=== PATIENT | female | born 1995 | race Two or more races ===

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

== ENCOUNTER 2017-02-06 16:49 | Emergency (ER) | payer SELFPAY ==
[~2017-02-06] VITALS: Ht 160 cm; Wt 72.1 kg
[2017-02-06] MEDS ORDERED: IV NORMAL SALINE 1000ML BAG 1,000 ML IV ONE (18:15)
[2017-02-06 18:54] LABS: BASO % 1 % (0-3); EOS % 1 % (0-3); HEMATOCRIT 40.6 % (36.0-47.0); HEMOGLOBIN 13.4 g/dL (12.0-15.5); LYMPH # 2.5 x10^3/uL (1.0-4.8); LYMPH % 24 % (24-48); MEAN CORPUSCULAR HEMOGLOBIN 28 pg (25-35); MEAN CORPUSCULAR HGB CONC 33 g/dL (31-37); MEAN CORPUSCULAR VOLUME 84 fL (79-100); MONO % 5 % (0-9); NEUT % 70 % (31-73); PLATELET COUNT 308 x10^3/uL (140-400); WHITE BLOOD COUNT 10.6 x10^3/uL (4.0-11.0)
[2017-02-06 19:02] LABS: CREATININE 0.6 mg/dL (0.6-1.0); GFR 128.8; MAGNESIUM 1.9 mg/dL (1.8-2.4); POTASSIUM 3.6 mmol/L (3.5-5.1)
[2017-02-06 19:42] VITALS: BP 113/70
--- NOTE | 2017-02-06 19:42 | PHYS DOC ---
Past Medical History Past Medical History: No Pertinent History, Other Additional Past Medical Histor: preeclampsia Past Surgical History: Other Additional Past Surgical Histo: RIGHT HAND REPAIR Alcohol Use: None Drug Use: None Adult General Chief Complaint Chief Complaint: NEAR SYNCOPE HPI HPI Patient is a 21 year old female who presents with general weakness. Patient reports last night she had an episode of palpitations and felt weak. This resolved, however this afternoon it started again. After arrival to ED patient reports her symptoms have started getting better. She did go to the Emergency Department at last night for her symptoms, but says "they did nothing at all " and discharged her home with no diagnosis. No chest pain or SOB. She has not taken anything for symptoms. Review of Systems Review of Systems Constitutional: General weakness. Denies fever or chills Respiratory: Denies cough or shortness of breath Cardiovascular: Palpitations. Denies chest pain GI: Denies abdominal pain, nausea, vomiting, or diarrhea Musculoskeletal: Denies back pain or joint pain Neurologic: Denies headache, focal weakness or sensory changes Current Medications Current Medications Current Medications Medications (Trade) Dose Ordered Sig/Jah Start Time Stop Time Status Last Admin Dose Admin Sodium Chloride (Iv Sodium Chloride 0.9% 1000ml Bag) 1,000 ml @ 1,000 mls/hr 1X ONCE 02/06/17 18:15 02/06/17 19:14 DC 02/06/17 18:43 1,000 MLS/HR Allergies Allergies Allergies Coded Allergies Type Severity Reaction Last Updated Verified No Known Drug Allergies 12/31/13 No Physical Exam Physical Exam Constitutional: Well developed, well nourished, no acute distress, non-toxic appearance. [] HENT: Normocephalic, atraumatic, bilateral external ears normal, oropharynx moist, no oral exudates, nose normal. [] Eyes: PERRLA, EOMI, conjunctiva normal, no discharge. [] Neck: Normal range of motion, no tenderness, supple, no stridor. [] Cardiovascular:Heart rate regular rhythm, no murmur [] Lungs & Thorax: Bilateral breath sounds clear to auscultation [] Abdomen: Bowel sounds normal, soft, no tenderness, no masses, no pulsatile masses. [] Skin: Warm, dry, no erythema, no rash. [] Back: No tenderness, no CVA tenderness. [] Extremities: No tenderness, no cyanosis, no clubbing, ROM intact, no edema. [] Neurologic: Alert and oriented X 3, normal motor function, normal sensory function, no focal deficits noted. [] Psychologic: Affect normal, judgement normal, mood normal. [] Current Patient Data Vital Signs Vital Signs Date Time Temp Pulse Resp B/P Pulse Ox O2 Delivery O2 Flow Rate FiO2 02/06/17 19:42 78 113/70 99 Room Air 02/06/17 17:05 97.9 18 97.9 Lab Values Laboratory Tests Test 02/06/17 16:23 02/06/17 18:40 POC Urine HCG, Qualitative Hcg negative (Negative) White Blood Count 10.6x10^3/uL (4.0-11.0) Red Blood Count 4.80x10^6/uL (3.50-5.40) Hemoglobin 13.4g/dL (12.0-15.5) Hematocrit 40.6% (36.0-47.0) Mean Corpuscular Volume 84fL (79-100) Mean Corpuscular Hemoglobin 28pg (25-35) Mean Corpuscular Hemoglobin Concent 33g/dL (31-37) Red Cell Distribution Width 15.0% (11.5-14.5) H Platelet Count 308x10^3/uL (140-400) Neutrophils (%) (Auto) 70% (31-73) Lymphocytes (%) (Auto) 24% (24-48) Monocytes (%) (Auto) 5% (0-9) Eosinophils (%) (Auto) 1% (0-3) Basophils (%) (Auto) 1% (0-3) Neutrophils # (Auto) 7.4x10^3uL (1.8-7.7) Lymphocytes # (Auto) 2.5x10^3/uL (1.0-4.8) Monocytes # (Auto) 0.6x10^3/uL (0.0-1.1) Eosinophils # (Auto) 0.1x10^3/uL (0.0-0.7) Basophils # (Auto) 0.0x10^3/uL (0.0-0.2) Sodium Level 142mmol/L (136-145) Potassium Level 3.6mmol/L (3.5-5.1) Chloride Level 104mmol/L (98-107) Carbon Dioxide Level 30mmol/L (21-32) Anion Gap 8 (6-14) Blood Urea Nitrogen 10mg/dL (7-20) Creatinine 0.6mg/dL (0.6-1.0) Estimated GFR (Cockcroft-Gault) 128.8 Glucose Level 87mg/dL (70-99) Calcium Level 9.0mg/dL (8.5-10.1) Magnesium Level 1.9mg/dL (1.8-2.4) Thyroid Stimulating Hormone (TSH) 1.955uIU/mL (0.358-3.74) Laboratory Tests 02/06/17 18:40 Laboratory Tests 02/06/17 18:40 EKG EKG EKG (my read): sinus rhythm, rate 77, normal axis, intervals wnl, nonspecific ST changes (likely age-related) Radiology/Procedures Radiology/Procedures CXR (my read): No acute abnormality Course & Med Decision Making Course & Med Decision Making Pertinent Labs and Imaging studies reviewed. (See chart for details) Patient is 21 year old female who presents with general weakness, palpitations. Possibly due to anxiety. EKG, CXR, labs ordered to screen for other causes. IV fluid bolus given. EKG, CXR ok per my read. Labs unremarkable. Discussed results with patient, who is feeling better. Will discharge with instructions for follow up, return precautions. Dragon Disclaimer Dragon Disclaimer This electronic medical record was generated, in whole or in part, using a voice recognition dictation system. Departure Departure Impression: Primary Impression: Weakness generalized Additional Impression: Palpitations Disposition: 01 HOME, SELF-CARE Condition: IMPROVED Referrals: UNKNOWN PCP NAME (PCP) Patient Instructions: Anxiety and Panic Attacks, Palpitations Additional Instructions: Thank you for allowing us to provide care today in the Emergency Department. Keep your follow up appointment with your primary care doctor. Return promptly to the Emergency Department if you develop any new or concerning symptoms. Problem Qualifiers MARIO VARGAS MD Feb 06, 2017 19:42
--- NOTE | 2017-02-07 06:09 | EKG ---
[facility] [address] [place] [address] Test Date: 2017-02-06 Test Time: 17:21:04 Pat Name: MIKI GARLAND Department: Room: Gender: F Rd Project Manager: : 1995 Requested By: MARIO VARGAS Order Number: [id number] Reading MD: Viv Burton Measurements Intervals [place] Rate: 77 P: 62 KS: 120 QRS: 90 QRSD: 88 T: 28 QT: 374 QTc: 425 Interpretive Statements SINUS RHYTHM NORMAL EKG Electronically Signed On 02-08-2017 17:23:32 CDT by Viv Burotn
--- NOTE | 2017-02-07 08:49 | RAD ---
PA and lateral chest radiographs 02/06/2017. Clinical History: Palpitations for one day with dizziness. PA and lateral digital radiographs of the chest were obtained. No previous studies are available for comparison. The cardiac and mediastinal silhouettes are within normal limits in size and configuration. No pulmonary infiltrate is seen. No pleural effusion or pneumothorax is noted. The osseous structures are grossly intact. Impression: No radiographic evidence of active cardiopulmonary disease.
== END 2017-02-06 19:55 | disposition home or self-care (01) ==
LOC: ER 16:49
DX: R53.1 Weakness (principal); R00.2 Palpitations
CPT/HCPCS: 36415; 71020; 80048; 81025; 83735; 84443; 85027; 93005; 96360; 99285; J7030

== ENCOUNTER 2017-03-13 14:51 | Emergency (ER) | payer SELFPAY ==
[~2017-03-13] VITALS: Ht 160 cm; Wt 72.1 kg
[2017-03-13 15:28] LABS: BILIRUBIN,URINE NEGATIVE (NEG); GLUCOSE,URINE NEGATIVE (NEG); NITRITE,URINE NEGATIVE (NEG); PH,URINE 7.5; PROTEIN,URINE NEGATIVE (NEG-TRACE); UROBILINOGEN,URINE 0.2 mg/dL (0.2 mg/dL)
[2017-03-13 15:34] LABS: BACTERIA,URINE 0 /HPF (0-FEW); RBC,URINE 0 /HPF (0-2); SQUAMOUS EPITHELIAL CELL,UR FEW /LPF; WBC,URINE OCC /HPF (0-4)
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
[2017-03-13 16:19] LABS: BASO # 0.1 x10^3/uL (0.0-0.2); BASO % 1 % (0-3); EOS % 1 % (0-3); HEMATOCRIT 37.2 % (36.0-47.0); HEMOGLOBIN 12.1 g/dL (12.0-15.5); LYMPH # 2.9 x10^3/uL (1.0-4.8); LYMPH % 29 % (24-48); MEAN CORPUSCULAR HEMOGLOBIN 27 pg (25-35); MEAN CORPUSCULAR HGB CONC 33 g/dL (31-37); MEAN CORPUSCULAR VOLUME 84 fL (79-100); MONO % 4 % (0-9); NEUT % 65 % (31-73); PLATELET COUNT 271 x10^3/uL (140-400); RED BLOOD COUNT 4.45 x10^6/uL (3.50-5.40); RED CELL DISTRIBUTION WIDTH 14.9 % (11.5-14.5); WHITE BLOOD COUNT 10.2 x10^3/uL (4.0-11.0)
--- NOTE | 2017-03-13 16:33 | RAD ---
Chest, 2 views, 03/13/2017: History: Dizziness Comparison is made to a study from 02/06/2017. The heart size and pulmonary vascularity are normal. No pulmonary infiltrates are seen. There is no evidence of pleural fluid. IMPRESSION: No acute cardiopulmonary abnormality is detected.
[2017-03-13 16:36] LABS: CALCIUM 8.8 mg/dL (8.5-10.1); CREATININE 0.7 mg/dL (0.6-1.0); GFR 107.8; POTASSIUM 3.6 mmol/L (3.5-5.1)
--- NOTE | 2017-03-13 16:39 | EKG ---
[facility] [address] [place] [address] Test Date: 2017-03-13 Test Time: 16:05:51 Pat Name: MIKI GARLAND Department: Room: Gender: F Endocrinology Nurse: : 1995 Requested By: WENDY LINCOLN Order Number: [id number] Reading MD: Viv Burton Measurements Intervals [place] Rate: 65 P: 56 KS: 114 QRS: 93 QRSD: 86 T: 38 QT: 400 QTc: 417 Interpretive Statements SINUS RHYTHM RIGHTWARD AXIS OTHERWISE NORMAL ECG RI6.01 Unconfirmed report Compared to ECG 02/06/2017 17:21:04 Right-axis deviation now present Electronically Signed On 03-15-2017 15:38:44 CDT by Viv Burton
[2017-03-13 17:23] LABS: BARBITURATES NEG (NEG); BENZODIAZEPINES NEG (NEG); CANNABINOIDS NEG (NEG); COCAINE NEG (NEG); METHADONE NEG (NEG); OPIATES NEG (NEG); PHENCYCLIDINE NEG (NEG)
[2017-03-13 18:01] VITALS: BP 110/65
== END 2017-03-13 18:01 | disposition home or self-care (01) ==
LOC: ER 14:51
DX: T43.225A Adverse effect of selective serotonin reuptake inhibitors, initial encounter (principal); R07.89 Other chest pain; Y92.89 Other specified places as the place of occurrence of the external cause
CPT/HCPCS: 36415; 71020; 80048; 80305; 81001; 81025; 84484; 84703; 85027; 93005; G0481; 99285-25

== ENCOUNTER 2017-04-13 18:53 | Emergency (ER) | payer SELFPAY ==
[~2017-04-13] VITALS: Ht 160 cm; Wt 72.6 kg
[2017-04-13 19:19] LABS: BILIRUBIN,URINE NEGATIVE (NEG); GLUCOSE,URINE NEGATIVE (NEG); NITRITE,URINE NEGATIVE (NEG); PROTEIN,URINE NEGATIVE (NEG-TRACE); UROBILINOGEN,URINE 0.2 mg/dL (0.2 mg/dL)
[2017-04-13 19:28] LABS: BACTERIA,URINE FEW /HPF (0-FEW); RBC,URINE TNTC /HPF (0-2); SQUAMOUS EPITHELIAL CELL,UR OCC /LPF; WBC,URINE OCC /HPF (0-4)
--- NOTE | 2017-04-13 19:35 | PHYS DOC ---
Past Medical History Past Medical History: Anxiety, Depression, Other Additional Past Medical Histor: preeclampsia Past Surgical History: Other Additional Past Surgical Histo: RIGHT HAND REPAIR Alcohol Use: Occasionally Drug Use: None Adult General Chief Complaint Chief Complaint: VAGINAL BLEEDING HPI HPI Patient is a 21 year old female presents emergency department stating that her last normal menstrual. Was on 02/20/17. Patient states that she started spotting yesterday. She states that she had 2 tests that were +1 at home and wanted a clinic. Patient states that she is a 4 para 2 medical AB 2. Patient states that she started spotting last night today she started developing suprapubic abdominal pain and discomfort with back pain. She states that she has gone through 4 pads since this morning. She states that they have not been saturated. Patient denies any nausea vomiting fever or chills. She denies concerns for STDs at this time. She states she has sexually active with one partner her . Review of Systems Review of Systems Constitutional: Denies fever or chills [] Eyes: Denies change in visual acuity, redness, or eye pain [] HENT: Denies nasal congestion or sore throat [] Respiratory: Denies cough or shortness of breath [] Cardiovascular: No additional information not addressed in HPI [] GI: Suprapubic abdominal pain, denies nausea, vomiting, bloody stools or diarrhea [] : Denies dysuria or hematuria [] Musculoskeletal: Denies back pain or joint pain [] Integument: Denies rash or skin lesions [] Neurologic: Denies headache, focal weakness or sensory changes [] Endocrine: Denies polyuria or polydipsia [] Allergies Allergies Allergies Coded Allergies Type Severity Reaction Last Updated Verified No Known Drug Allergies 12/31/13 No Physical Exam Physical Exam Constitutional: Well developed, well nourished, no acute distress, non-toxic appearance. [] HENT: Normocephalic, atraumatic, bilateral external ears normal, oropharynx moist, no oral exudates, nose normal. [] Eyes: PERRLA, EOMI, conjunctiva normal, no discharge. [] Neck: Normal range of motion, no tenderness, supple, no stridor. [] Cardiovascular:Heart rate regular rhythm, no murmur [] Lungs & Thorax: Bilateral breath sounds clear to auscultation [] Abdomen: Bowel sounds hypoactive, soft, no tenderness, no masses, no pulsatile masses. [] Skin: Warm, dry, no erythema, no rash. [] Back: No tenderness Extremities: No tenderness, no cyanosis, no clubbing, ROM intact, no edema. [] Neurologic: Alert and oriented X 3, normal motor function, normal sensory function, no focal deficits noted. [] Psychologic: Affect normal, judgement normal, mood normal. [] Current Patient Data Vital Signs Vital Signs Date Time Temp Pulse Resp B/P (MAP) Pulse Ox O2 Delivery O2 Flow Rate FiO2 04/13/17 19:05 98.6 59 16 114/56 (75) 97 Room Air 98.6 Lab Values Laboratory Tests Test 04/13/17 18:18 04/13/17 19:10 04/13/17 19:20 POC Urine HCG, Qualitative Hcg negative (Negative) Urine Color Yellow Urine Clarity Cloudy Urine pH 7.0 Urine Specific [place] 1.015 Urine Protein Negative mg/dL (NEG-TRACE) Urine Glucose (UA) Negative mg/dL (NEG) Urine Ketones (Stick) Negative mg/dL (NEG) Urine Blood Large (NEG) Urine Nitrite Negative (NEG) Urine Bilirubin Negative (NEG) Urine Urobilinogen Dipstick 0.2 mg/dL (0.2 mg/dL) Urine Leukocyte Esterase Trace (NEG) Urine RBC Tntc /HPF (0-2) Urine WBC Occ /HPF (0-4) Urine Squamous Epithelial Cells Occ /LPF Urine Bacteria Few /HPF (0-FEW) Urine Mucus Slight /LPF Maternal Serum HCG Beta Subunit 2 mIU/mL (0-5) EKG EKG [] Radiology/Procedures Radiology/Procedures [] Course & Med Decision Making Course & Med Decision Making Pertinent Labs and Imaging studies reviewed. (See chart for details) Patient's test was negative here in the emergency department. Her Quant was 2. Patient with suprapubic abdominal pain and discomfort with cramping and lower back pain. Patient's urinalysis was positive for urinary tract infection. Patient will be provided with Macrobid one tablet twice day for the next 7 days recommended plenty of fluids such as water and cranberry juice. Recommended avoiding coverages cocktail, carbonate beverages, citrus fruits and alcohol as these are considered irritants to the bladder. Patient was also encouraged to follow-up with [employer]TE[employer]CE MECH[employer]IC in regards to irregular menstrual cycles. Patient agrees with discharge instructions, treatment regimens and follow-up recommendations. Signs and symptoms to return back to emergency department has been provided. [] Shelby Disclaimer Dragon Disclaimer This electronic medical record was generated, in whole or in part, using a voice recognition dictation system. Departure Departure Impression: Primary Impression: UTI (lower urinary tract infection) Additional Impression: Abnormal vaginal bleeding Disposition: HOME, SELF-CARE Condition: STABLE Referrals: LUCAS GONZALEZ (PCP) Patient Instructions: Urinary Tract Infection, [id number], Uterine Bleeding, Dysfunctional, [id number] Additional Instructions: Your urine test was positive for urinary tract infection. Your urine test was negative for . Her quantitative hCG was 2. Drink plenty of fluids such as water and cranberry juice. Avoid cranberry juice cocktail, carbonated beverages, caffeine, alcohol, citrus fruits as these are considered irritants to the bladder. Medication as prescribed. Tylenol or ibuprofen for pain and discomfort. Follow-up with her [employer] MA[employer]TE[employer]CE MECH[employer]IC in regards to dysfunctional bleeding. Return back to emergency department sign symptoms become worse. Scripts Nitrofurantoin Monohyd/M-Cryst (MACROBID 100 MG CAPSULE) 100 Mg Capsule 1 CAP PO BID, #14 CAP Prov: AILYN VÁSQUEZ APRN 04/13/17 Problem Qualifiers AILYN VÁSQUEZ APRN Apr 13, 2017 19:35
[2017-04-13] MEDS ORDERED: NITR100C62 PO (20:14)
[2017-04-13] MEDS ORDERED: IBUPROFEN 800 MG TABLET. PO ONE (20:15)
[2017-04-13 20:34] VITALS: BP 109/67
== END 2017-04-13 20:58 | disposition home or self-care (01) ==
LOC: ER 18:57
DX: N93.9 Abnormal uterine and vaginal bleeding, unspecified (principal); N39.0 Urinary tract infection, site not specified
CPT/HCPCS: 36415; 81001; 81025; 84702; 87086; 99284

== ENCOUNTER 2018-03-13 23:29 | Observation (INO) | payer SELFPAY ==
[2018-03-13] MEDS ORDERED: IV RINGERS,LACTATED 1000ML 1,000 ML IV (23:30)
[2018-03-14 01:12] LABS: BACTERIA,URINE MODERATE /HPF (0-FEW); BILIRUBIN,URINE NEGATIVE (NEG); CLARITY,URINE CLEAR; COLOR,URINE YELLOW; GLUCOSE,URINE NEGATIVE (NEG); NITRITE,URINE NEGATIVE (NEG); PROTEIN,URINE NEGATIVE (NEG-TRACE); RBC,URINE OCC /HPF (0-2); SQUAMOUS EPITHELIAL CELL,UR MANY /LPF; UROBILINOGEN,URINE 0.2 mg/dL (0.2 mg/dL)
[2018-03-14 01:16] LABS: BARBITURATES NEG (NEG); BENZODIAZEPINES NEG (NEG); CANNABINOIDS NEG (NEG); COCAINE NEG (NEG); METHADONE NEG (NEG); OPIATES NEG (NEG); PHENCYCLIDINE NEG (NEG)
[2018-03-14 01:17] LABS: AMPHETAMINE/METHAMPHETAMINE NEG (NEG); ETHANOL, URINE NEG (NEG)
[2018-03-14] MEDS: hydrOXYzine PAMOATE 25 MG CAPSULE PO (01:27)
== END 2018-03-14 01:34 | disposition home or self-care (01) ==
LOC: 3 SO LND 23:29
DX: O26.892 Other specified pregnancy related conditions, second trimester (principal); R10.9 Unspecified abdominal pain; Z3A.21 21 weeks gestation of pregnancy
CPT/HCPCS: 80307; 81001; 87086; G0378; G0379; Q0177

== ENCOUNTER 2018-05-03 01:53 | Observation (INO) | payer SELFPAY ==
[2018-05-03] MEDS ORDERED: IV RINGERS,LACTATED 1000ML 1,000 ML IV (02:00)
[2018-05-03 02:17] LABS: BILIRUBIN,URINE NEGATIVE (NEG); CLARITY,URINE CLEAR; GLUCOSE,URINE NEGATIVE (NEG); NITRITE,URINE NEGATIVE (NEG); PH,URINE 6.5; PROTEIN,URINE NEGATIVE (NEG-TRACE); UROBILINOGEN,URINE 0.2 mg/dL (0.2 mg/dL)
[2018-05-03 02:24] LABS: BARBITURATES NEG (NEG); BENZODIAZEPINES NEG (NEG); CANNABINOIDS NEG (NEG); COCAINE NEG (NEG); METHADONE NEG (NEG); OPIATES NEG (NEG); PHENCYCLIDINE NEG (NEG)
[2018-05-03 02:27] LABS: AMPHETAMINE/METHAMPHETAMINE NEG (NEG); ETHANOL, URINE NEG (NEG)
[2018-05-03 02:30] LABS: COLOR,URINE YELLOW
[2018-05-03 02:31] LABS: BACTERIA,URINE MODERATE /HPF (0-FEW); RBC,URINE OCC /HPF (0-2); SQUAMOUS EPITHELIAL CELL,UR MOD /LPF
[2018-05-03] MEDS: ACETAMINOPHEN 500 MG TABLET PO (03:22)
== END 2018-05-03 05:44 | disposition home or self-care (01) ==
LOC: 3 SO LND 01:53
DX: O99.89 Other specified diseases and conditions complicating pregnancy, childbirth and the puerperium (principal); O26.893 Other specified pregnancy related conditions, third trimester; M54.9 Dorsalgia, unspecified; R10.2 Pelvic and perineal pain; R10.9 Unspecified abdominal pain; Z3A.28 28 weeks gestation of pregnancy
CPT/HCPCS: 80307; 81001; 87086; G0378; G0379

== ENCOUNTER 2018-05-14 19:57 | Observation (INO) | payer SELFPAY ==
[2018-05-14] MEDS ORDERED: IV RINGERS,LACTATED 1000ML 1,000 ML IV (20:00)
== END 2018-05-14 21:20 | disposition home or self-care (01) ==
LOC: 3 SO LND 19:57
DX: O26.893 Other specified pregnancy related conditions, third trimester (principal); R42 Dizziness and giddiness; R51 Headache; Z3A.30 30 weeks gestation of pregnancy
CPT/HCPCS: G0378; G0379

== ENCOUNTER 2018-06-11 21:45 | Observation (INO) | payer SELFPAY ==
[2018-01-31 14:11] VITALS: BP 93/57
[~2018-06-11 21:45] MED LIST changes: +NITR100C62 PO
[2018-06-11] MEDS ORDERED: ACETAMINOPHEN 325 MG TABLET. PO PRN (22:00)
[2018-06-11 22:18] LABS: BILIRUBIN,URINE NEGATIVE (NEG); CLARITY,URINE CLEAR; COLOR,URINE YELLOW; NITRITE,URINE NEGATIVE (NEG); PH,URINE 6.5; PROTEIN,URINE NEGATIVE (NEG-TRACE); UROBILINOGEN,URINE 0.2 mg/dL (0.2 mg/dL)
[2018-06-11 22:26] LABS: AMPHETAMINE/METHAMPHETAMINE NEG (NEG); BACTERIA,URINE MANY /HPF (0-FEW); BARBITURATES NEG (NEG); BENZODIAZEPINES NEG (NEG); CANNABINOIDS NEG (NEG); COCAINE NEG (NEG); METHADONE NEG (NEG); OPIATES NEG (NEG); PHENCYCLIDINE NEG (NEG); RBC,URINE 0 /HPF (0-2); SQUAMOUS EPITHELIAL CELL,UR MANY /LPF
== END 2018-06-11 23:00 | disposition home or self-care (01) ==
LOC: 3 SO LND 21:45
PROVIDERS: ADMIT Obstetrics & Gynecology; ATTEND Obstetrics & Gynecology
DX: O26.893 Other specified pregnancy related conditions, third trimester (principal); R10.30 Lower abdominal pain, unspecified; Z3A.34 34 weeks gestation of pregnancy; Z79.899 Other long term (current) drug therapy
CPT/HCPCS: 80307; 81001; 87086; G0378; G0379; G0479

== ENCOUNTER 2018-06-15 11:02 | Observation (INO) | payer SELFPAY ==
[2018-01-31 14:11] VITALS: BP 93/57
[2018-06-15] MEDS ORDERED: IV RINGERS,LACTATED 1000ML 1,000 ML IV SCH (11:40)
[2018-06-15 12:02] LABS: BILIRUBIN,URINE NEGATIVE (NEG); CLARITY,URINE CLEAR; COLOR,URINE YELLOW; NITRITE,URINE NEGATIVE (NEG); PH,URINE 7.5; PROTEIN,URINE NEGATIVE (NEG-TRACE)
[2018-06-15 12:04] LABS: AMNIO PT NEGATIVE
[2018-06-15 12:21] LABS: RBC,URINE RARE /HPF (0-2)
[2018-06-15 12:22] LABS: BACTERIA,URINE MANY /HPF (0-FEW); SQUAMOUS EPITHELIAL CELL,UR MANY /LPF
== END 2018-06-15 13:03 | disposition home or self-care (01) ==
LOC: 3 SO LND 11:02
PROVIDERS: ADMIT Obstetrics & Gynecology; ATTEND Obstetrics & Gynecology
DX: O42.913 Preterm premature rupture of membranes, unspecified as to length of time between rupture and onset of labor, third trimester (principal); O26.893 Other specified pregnancy related conditions, third trimester; R10.2 Pelvic and perineal pain; Z3A.34 34 weeks gestation of pregnancy
CPT/HCPCS: 36415; 81001; 84112; 87086; G0378; G0379

== ENCOUNTER 2018-11-12 20:38 | Emergency (ER) | payer SELFPAY ==
[~2018-11-12] VITALS: Ht 160 cm; Wt 77.1 kg
[~2018-11-12 20:38] MED LIST changes: +HYDR-3164 PO; +NAPR-514 PO
--- NOTE | 2018-11-12 21:04 | PHYS DOC ---
Past Medical History Past Medical History: Anxiety, Depression, Other Additional Past Medical Histor: preeclampsia Past Surgical History: Other Additional Past Surgical Histo: RIGHT HAND REPAIR Additional Information: nonsmoker Alcohol Use: Occasionally Drug Use: None Adult General Chief Complaint Chief Complaint: DIZZY/LIGHT HEADED HPI HPI Patient is a 23 YO F that is presenting with dizziness and vomiting that began Thursday after she saw her PCP for symptoms of BV. She was prescribed Flagyl and she states that her symptoms began after she started taking the antibiotic. She reports a couple episodes of emesis in the last couple days with streaks of blood in the last episode. She denies drinking any alcohol while taking the antibiotic. She reports that she has had a headache that began today that is also bothering her. She reports episodes of heart palpitations but denies LOC or falling with the dizziness. She denies trauma. Denies . Review of Systems Review of Systems Constitutional: Denies fever or chills [] Eyes: Denies change in visual acuity, redness, or eye pain [] HENT: Denies nasal congestion or sore throat [] Respiratory: Denies cough or shortness of breath [] Cardiovascular: Denies chest pain, reports palpitations [] GI: Denies abdominal pain, or diarrhea, reports nausea and vomiting [] : Denies dysuria or hematuria [] Integument: Denies rash or skin lesions [] Neurologic: Reports headache, denies focal weakness or sensory changes [] Complete systems were reviewed and found to be within normal limits, except as documented in this note. Current Medications Current Medications Current Medications Medications (Trade) Dose Ordered Sig/Jah Start Time Stop Time Status Last Admin Dose Admin Dexamethasone Sodium Phosphate (Decadron) 10 mg 1X ONCE 11/12/18 21:45 11/12/18 21:47 DC 11/12/18 21:56 10 MG Ketorolac Tromethamine (Toradol 15mg Vial) 15 mg 1X ONCE 11/12/18 21:45 11/12/18 21:47 DC 11/12/18 21:55 15 MG Ondansetron HCl (Zofran) 4 mg 1X ONCE 11/12/18 22:00 11/12/18 22:02 DC 11/12/18 22:02 4 MG Sodium Chloride 1,000 ml @ 1,000 mls/hr 1X ONCE 11/12/18 21:15 11/12/18 22:14 11/12/18 21:21 1,000 MLS/HR Allergies Allergies Allergies Coded Allergies Type Severity Reaction Last Updated Verified No Known Drug Allergies 12/31/13 No Physical Exam Physical Exam Constitutional: Well developed, well nourished, no acute distress, non-toxic appearance. [] HENT: Normocephalic, atraumatic, nose normal, mild sinus tenderness. [] Eyes: EOMI, conjunctiva normal, no discharge. [] Neck: Normal range of motion, no tenderness, no meningeal signs [] Cardiovascular: Heart rate regular rhythm, no murmur [] Lungs & Thorax: Bilateral breath sounds clear to auscultation [] Abdomen: Soft, no tenderness. [] Skin: Warm, dry, no erythema, no rash. [] Extremities: No tenderness, no edema. [] Neurologic: Alert and oriented X 3, no focal deficits noted. [] Psychologic: Affect normal, judgement normal, mood normal. [] Current Patient Data Vital Signs Vital Signs Date Time Temp Pulse Resp B/P (MAP) Pulse Ox O2 Delivery O2 Flow Rate FiO2 11/12/18 20:53 98.1 87 18 127/73 (91) 99 Room Air 98.1 Lab Values Laboratory Tests Test 11/12/18 20:45 11/12/18 21:00 Urine Collection Type Unknown Urine Color Dominga Urine Clarity Clear Urine pH 6.5 Urine Specific [place] 1.025 Urine Protein 30 mg/dL (NEG-TRACE) Urine Glucose (UA) Negative mg/dL (NEG) Urine Ketones (Stick) Negative mg/dL (NEG) Urine Blood Negative (NEG) Urine Nitrite Negative (NEG) Urine Bilirubin Negative (NEG) Urine Urobilinogen Dipstick 0.2 mg/dL (0.2 mg/dL) Urine Leukocyte Esterase Small (NEG) Urine RBC 0 /HPF (0-2) Urine WBC 1-4 /HPF (0-4) Urine Squamous Epithelial Cells Mod /LPF Urine Bacteria Moderate /HPF (0-FEW) Urine Mucus Marked /LPF Urine Test Negative (NEG) White Blood Count 10.7 x10^3/uL (4.0-11.0) Red Blood Count 4.66 x10^6/uL (3.50-5.40) Hemoglobin 13.5 g/dL (12.0-15.5) Hematocrit 40.8 % (36.0-47.0) Mean Corpuscular Volume 88 fL (79-100) Mean Corpuscular Hemoglobin 29 pg (25-35) Mean Corpuscular Hemoglobin Concent 33 g/dL (31-37) Red Cell Distribution Width 15.1 % (11.5-14.5) H Platelet Count 313 x10^3/uL (140-400) Neutrophils (%) (Auto) 80 % (31-73) H Lymphocytes (%) (Auto) 16 % (24-48) L Monocytes (%) (Auto) 4 % (0-9) Eosinophils (%) (Auto) 0 % (0-3) Basophils (%) (Auto) 1 % (0-3) Neutrophils # (Auto) 8.5 x10^3uL (1.8-7.7) H Lymphocytes # (Auto) 1.7 x10^3/uL (1.0-4.8) Monocytes # (Auto) 0.4 x10^3/uL (0.0-1.1) Eosinophils # (Auto) 0.0 x10^3/uL (0.0-0.7) Basophils # (Auto) 0.1 x10^3/uL (0.0-0.2) Sodium Level 141 mmol/L (136-145) Potassium Level 3.5 mmol/L (3.5-5.1) Chloride Level 103 mmol/L (98-107) Carbon Dioxide Level 27 mmol/L (21-32) Anion Gap 11 (6-14) Blood Urea Nitrogen 12 mg/dL (7-20) Creatinine 0.6 mg/dL (0.6-1.0) Estimated GFR (Cockcroft-Gault) 126.2 BUN/Creatinine Ratio 20 (6-20) Glucose Level 121 mg/dL (70-99) H Calcium Level 9.5 mg/dL (8.5-10.1) Magnesium Level 1.7 mg/dL (1.8-2.4) L Total Bilirubin 0.4 mg/dL (0.2-1.0) Aspartate Amino Transferase (AST) 22 U/L (15-37) Alanine Aminotransferase (ALT) 29 U/L (14-59) Alkaline Phosphatase 112 U/L (46-116) Creatine Kinase 51 U/L (26-192) Creatine Kinase MB (Mass) < 0.5 ng/mL (0.0-3.6) Creatine Kinase MB Relative Index % (0-4) Troponin I Quantitative < 0.017 ng/mL (0.000-0.055) Total Protein 8.4 g/dL (6.4-8.2) H Albumin 3.9 g/dL (3.4-5.0) Albumin/Globulin Ratio 0.9 (1.0-1.7) L Ethyl Alcohol Level < 10 mg/dL (0-10) Laboratory Tests 11/12/18 21:00 Laboratory Tests 11/12/18 21:00 EKG EKG @2117 NSR at 74 BPM, no ST elevation Radiology/Procedures Radiology/Procedures [] Course & Med Decision Making Course & Med Decision Making Pertinent Labs reviewed. (See chart for details) Patient is a 23 YO F that is presenting with a three day history of nausea and dizziness that began when she started taking her Flagyl prescribed by her PCP for symptoms of BV. She denies drinking alcohol while taking the antibiotics and reports episodes of heart racing during the last couple days. She is PERC negative. Labs were obtained and posted to chart. EKG was NSR, no ST elevation. Orthostatics negative. One liter NS bolus given. Headache pain addressed. Patient did have episode of nausea and vomiting in department. Nausea addressed. Patient stable for discharge with outpatient follow-up with PCP. Discussed findings and plan with patient and family, who acknowledge understanding and agreement. Dragon Disclaimer Dragon Disclaimer This electronic medical record was generated, in whole or in part, using a voice recognition dictation system. Departure Departure Impression: Primary Impression: Dizziness Additional Impressions: Headache Palpitations Nausea & vomiting Disposition: 01 HOME, SELF-CARE Condition: STABLE Referrals: NO PCP (PCP) Patient Instructions: Dizziness, Anhk-jo-Voyk, General Headache Without Cause, Qtsu-[id number], Nausea and Vomiting, Veok-ad-Wuaa, Palpitations, Ctyr-uq-Vnai Scripts Ondansetron (ONDANSETRON ODT) 4 Mg Tab.rapdis 1 TAB PO PRN Q6-8HRS PRN for NAUSEA, #16 TAB Prov: JOSH GARCIA DO 11/12/18 Butalb/Acetaminophen/Caffeine (AUHIPG-GVVUEFTM-GMXM 50-325-40) 1 Each Tablet 1 EACH PO Q6HRS PRN for HEADACHE, #14 TAB Prov: JOSH GARCIA DO 11/12/18 Problem Qualifiers Additional Impressions: Headache Headache type: unspecified Headache chronicity pattern: acute headache Intractability: not intractable Qualified Codes: R51 - Headache Nausea & vomiting Vomiting type: unspecified Vomiting Intractability: non-intractable Qualified Codes: R11.2 - Nausea with vomiting, unspecified JOSH GARCIA DO Nov 12, 2018 21:04
[2018-11-12] MEDS ORDERED: IV NORMAL SALINE 1000ML BAG 1,000 ML IV ONE (21:15)
[2018-11-12 21:18] LABS: BASO # 0.1 x10^3/uL (0.0-0.2); BASO % 1 % (0-3); EOS % 0 % (0-3); HEMATOCRIT 40.8 % (36.0-47.0); HEMOGLOBIN 13.5 g/dL (12.0-15.5); LYMPH # 1.7 x10^3/uL (1.0-4.8); LYMPH % 16 % (24-48); MEAN CORPUSCULAR HEMOGLOBIN 29 pg (25-35); MEAN CORPUSCULAR HGB CONC 33 g/dL (31-37); MEAN CORPUSCULAR VOLUME 88 fL (79-100); MONO # 0.4 x10^3/uL (0.0-1.1); MONO % 4 % (0-9); NEUT # 8.5 x10^3uL (1.8-7.7); NEUT % 80 % (31-73); PLATELET COUNT 313 x10^3/uL (140-400); RED BLOOD COUNT 4.66 x10^6/uL (3.50-5.40); RED CELL DISTRIBUTION WIDTH 15.1 % (11.5-14.5); WHITE BLOOD COUNT 10.7 x10^3/uL (4.0-11.0)
[2018-11-12 21:19] LABS: BILIRUBIN,URINE NEGATIVE (NEG); CLARITY,URINE CLEAR; COLOR,URINE AMBER; NITRITE,URINE NEGATIVE (NEG); PH,URINE 6.5; PROTEIN,URINE 30 mg/dL (NEG-TRACE); UROBILINOGEN,URINE 0.2 mg/dL (0.2 mg/dL)
[2018-11-12 21:25] LABS: CALCIUM 9.5 mg/dL (8.5-10.1); CREATININE 0.6 mg/dL (0.6-1.0); GFR 126.2; POTASSIUM 3.5 mmol/L (3.5-5.1)
[2018-11-12 21:26] LABS: BACTERIA,URINE MODERATE /HPF (0-FEW); RBC,URINE 0 /HPF (0-2); SQUAMOUS EPITHELIAL CELL,UR MOD /LPF
[2018-11-12 21:29] LABS: U PREG PATIENT NEGATIVE (NEG)
[2018-11-12 21:30] LABS: ALBUMIN 3.9 g/dL (3.4-5.0); ALBUMIN/GLOBULIN RATIO 0.9 (1.0-1.7); MAGNESIUM 1.7 mg/dL (1.8-2.4); TOTAL BILIRUBIN 0.4 mg/dL (0.2-1.0); TOTAL PROTEIN 8.4 g/dL (6.4-8.2)
[2018-11-12 21:39] LABS: CREATINE KINASE 51 U/L (26-192)
[2018-11-12] MEDS ORDERED: KETOROLAC 15 MG/ML VIAL. IV ONE (21:45)
[2018-11-12] MEDS ORDERED: DEXAMETHASONE SOD PHOS 20 MG/5 ML VIAL. IV ONE (21:45)
[2018-11-12 21:47] VITALS: BP 109/65
[2018-11-12] MEDS ORDERED: BUTA1TAB23 PO (21:50)
[2018-11-12] MEDS ORDERED: ONDANSETRON PF 4 MG/2 ML VIAL. IV ONE (22:00)
[2018-11-12] MEDS ORDERED: ONDA4TAB12 PO (22:03)
--- NOTE | 2018-11-14 10:30 | EKG ---
[facility] [address] [place] [address] Test Date: 2018-11-12 Test Time: 21:11:01 Pat Name: MIKI GONZALEZ Department: Room: Gender: F Completion Engineer: : 1995 Requested By: JOSH GARCIA Order Number: [id number] Reading MD: Measurements Intervals Cameron Rate: 74 P: 43 ID: [id number] QRS: 74 QRSD: 92 T: 34 QT: 386 QTc: 429 Interpretive Statements SINUS RHYTHM NORMAL ECG RI6.01 No previous ECG available for comparison
== END 2018-11-12 22:25 | disposition home or self-care (01) ==
LOC: ER 20:38
DX: R42 Dizziness and giddiness (principal); R11.2 Nausea with vomiting, unspecified; R00.2 Palpitations; R51 Headache; F41.9 Anxiety disorder, unspecified; F32.9 Major depressive disorder, single episode, unspecified
CPT/HCPCS: 36415; 80053; 81001; 81025; 82553; 83735; 84484; 85025; 87086; 93005; 96361; 96374; 96375; 99284; G0480; J1100; J1885; J2405; J7030

== ENCOUNTER 2019-05-03 13:51 | Emergency (ER) | payer SELFPAY ==
[~2019-05-03] VITALS: Ht 157.5 cm; Wt 77.1 kg
[~2019-05-03 13:51] MED LIST changes: +BUTA1TAB23 PO; +ONDA4TAB12 PO
[2019-05-03 14:13] VITALS: BP 116/66
--- NOTE | 2019-05-03 14:49 | RAD ---
Indication: Right thumb crush injury. TECHNIQUE: Single AP view of the hand and 2 views of the right thumb COMPARISON: None FINDINGS/ impression: No acute fracture or dislocation seen. No soft tissue abnormality. No radiopaque foreign body. Electronically signed by: Michael Hutchinson DO (05/03/2019 2:46 PM) [facility]
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
== END 2019-05-03 16:12 | disposition home or self-care (01) ==
LOC: ER 13:51
DX: S60.111A Contusion of right thumb with damage to nail, initial encounter (principal); F41.9 Anxiety disorder, unspecified; F32.9 Major depressive disorder, single episode, unspecified; X58.XXXA Exposure to other specified factors, initial encounter; Y93.89 Activity, other specified; Y92.89 Other specified places as the place of occurrence of the external cause; Y99.8 Other external cause status
CPT/HCPCS: 73140; 99284

== ENCOUNTER 2019-08-03 18:09 | Emergency (ER) | payer SELFPAY ==
[~2019-08-03] VITALS: Ht 160 cm; Wt 63.5 kg
[2019-08-03 18:15] VITALS: BP 112/71
[2019-08-03] MEDS ORDERED: NAPROXEN 500 MG TABLET PO STA (18:24)
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
[2019-08-03] MEDS ORDERED: CYCLOBENZAPRINE 10 MG TABLET. PO ONE (18:30)
[2019-08-03] MEDS ORDERED: HYDROcodone/APAP 5/325MG 1 TAB TABLET PO ONE (18:30)
[2019-08-03] MEDS ORDERED: DICL50TA2 PO (18:42)
[2019-08-03] MEDS ORDERED: CYCL10TA2 PO (18:42)
--- NOTE | 2019-08-03 18:57 | RAD ---
PA chest and 4 oblique right rib x-rays HISTORY: Right rib pain. FINDINGS: Heart size normal. Mediastinal silhouette is normal. No pneumothorax, pulmonary opacities or pleural effusions. No evidence of a right rib fracture. Bones are unremarkable. IMPRESSION: Normal exam. Electronically signed by: Jay Church MD (08/03/2019 6:54 PM) [facility]
== END 2019-08-03 18:47 | disposition home or self-care (01) ==
LOC: ER 18:09
DX: S20.211A Contusion of right front wall of thorax, initial encounter (principal); F41.9 Anxiety disorder, unspecified; F32.9 Major depressive disorder, single episode, unspecified; Y04.2XXA Assault by strike against or bumped into by another person, initial encounter; Y93.89 Activity, other specified; Y92.89 Other specified places as the place of occurrence of the external cause; Y99.8 Other external cause status
CPT/HCPCS: 71101; 99284

== ENCOUNTER 2019-11-12 15:27 | Emergency (ER) | payer SELFPAY ==
[~2019-11-12] VITALS: Ht 162.6 cm; Wt 63.0 kg
[~2019-11-12 15:27] MED LIST changes: +CYCL10TA2 PO; +DICL50TA2 PO
[2019-11-12 15:43] VITALS: BP 96/58
[2019-11-12] MEDS ORDERED: ONDA4TAB12 PO (15:52)
[2019-11-12] MEDS ORDERED: AMOX500C PO (15:52)
--- NOTE | 2019-11-12 15:52 | PHYS DOC ---
Past Medical History Past Medical History: Anxiety, Depression, Other Additional Past Medical Histor: preeclampsia Past Surgical History: Other Additional Past Surgical Histo: RIGHT HAND REPAIR Alcohol Use: Occasionally Drug Use: None Adult General Chief Complaint Chief Complaint: FLU SYMPTOM HPI HPI Patient is a 24 year old female who presents with since 2 days of 103 fever. She last took any Tylenol at 10:30 this morning. Patient is 103 fever emergency room today. She has throat pain and nausea. Patient states she is still drinking fluids but is very painful. She states she is still eating some but she is nauseated and it hurts to eat. Denies headache, cough, abdominal pain, nasal congestion, chest pain, shortness of air, dizziness, weakness, visual changes. Review of Systems Review of Systems Constitutional: fever or chills [] HENT: Denies nasal congestion. +sore throat [] GI: Denies abdominal pain. + nausea, denies vomiting, bloody stools or diarrhea [] Musculoskeletal: generalized back pain and bodyaches or joint pain [] All other systems were reviewed and found to be within normal limits, except as documented in this note. Current Medications Current Medications Current Medications Medications (Trade) Dose Ordered Sig/Jah Start Time Stop Time Status Last Admin Dose Admin Dexamethasone (Decadron) 10 mg 1X ONCE 11/12/19 16:15 11/12/19 16:16 DC 11/12/19 16:02 10 MG Ibuprofen (Motrin) 600 mg 1X ONCE 11/12/19 16:15 11/12/19 16:16 DC 11/12/19 16:02 600 MG Ondansetron HCl (Zofran Odt) 4 mg 1X ONCE 11/12/19 16:15 11/12/19 16:16 DC 11/12/19 16:03 4 MG Sodium Chloride 1,000 ml @ 1,000 mls/hr 1X ONCE 11/12/19 16:45 11/12/19 17:44 DC 11/12/19 16:49 1,000 MLS/HR Allergies Allergies Allergies Coded Allergies Type Severity Reaction Last Updated Verified No Known Drug Allergies 12/31/13 No Physical Exam Physical Exam Constitutional: Well developed, well nourished, no acute distress, non-toxic appearance. [] HENT: Normocephalic, atraumatic, bilateral external ears normal, oropharynx moist, no oral exudates, nose normal. Tonsil 2+ with redness and exudates. Bilateral tympanics red and tender with exam. [] Eyes: PERRLA, EOMI, conjunctiva normal, no discharge. [] Neck: Normal range of motion, no tenderness, supple, no stridor. [] Cardiovascular:Heart rate regular rhythm, no murmur [] Lungs & Thorax: Bilateral breath sounds clear to auscultation [] Abdomen: Bowel sounds normal, soft, no tenderness, no masses, no pulsatile masses. [] Skin: Warm, dry, no erythema, no rash. [] Back: No tenderness, no CVA tenderness. [] Extremities: No tenderness, no cyanosis, no clubbing, ROM intact, no edema. [] Neurologic: Alert and oriented X 3, normal motor function, normal sensory function, no focal deficits noted. [] Psychologic: Affect normal, judgement normal, mood normal. [] Current Patient Data Vital Signs Vital Signs Date Time Temp Pulse Resp B/P (MAP) Pulse Ox O2 Delivery O2 Flow Rate FiO2 11/12/19 15:43 103.0 143 16 96/58 (71) 99 Room Air 103.0 Lab Values Laboratory Tests Test 11/12/19 16:42 White Blood Count 15.8 x10^3/uL (4.0-11.0) H Red Blood Count 4.52 x10^6/uL (3.50-5.40) Hemoglobin 13.4 g/dL (12.0-15.5) Hematocrit 40.6 % (36.0-47.0) Mean Corpuscular Volume 90 fL (79-100) Mean Corpuscular Hemoglobin 30 pg (25-35) Mean Corpuscular Hemoglobin Concent 33 g/dL (31-37) Red Cell Distribution Width 13.6 % (11.5-14.5) Platelet Count 225 x10^3/uL (140-400) Neutrophils (%) (Auto) 93 % (31-73) H Lymphocytes (%) (Auto) 3 % (24-48) L Monocytes (%) (Auto) 3 % (0-9) Eosinophils (%) (Auto) 0 % (0-3) Basophils (%) (Auto) 0 % (0-3) Neutrophils # (Auto) 14.7 x10^3/uL (1.8-7.7) H Lymphocytes # (Auto) 0.5 x10^3/uL (1.0-4.8) L Monocytes # (Auto) 0.5 x10^3/uL (0.0-1.1) Eosinophils # (Auto) 0.0 x10^3/uL (0.0-0.7) Basophils # (Auto) 0.0 x10^3/uL (0.0-0.2) Segmented Neutrophils % 82 % (35-66) H Band Neutrophils % 7 % (0-9) Lymphocytes % 9 % (24-48) L Monocytes % 2 % (0-10) Platelet Estimate Adequate (ADEQUATE) Sodium Level 138 mmol/L (136-145) Potassium Level 3.4 mmol/L (3.5-5.1) L Chloride Level 102 mmol/L (98-107) Carbon Dioxide Level 23 mmol/L (21-32) Anion Gap 13 (6-14) Blood Urea Nitrogen 11 mg/dL (7-20) Creatinine 0.7 mg/dL (0.6-1.0) Estimated GFR (Cockcroft-Gault) 104.6 BUN/Creatinine Ratio 16 (6-20) Glucose Level 129 mg/dL (70-99) H Calcium Level 8.8 mg/dL (8.5-10.1) Total Bilirubin 0.9 mg/dL (0.2-1.0) Aspartate Amino Transferase (AST) 15 U/L (15-37) Alanine Aminotransferase (ALT) 14 U/L (14-59) Alkaline Phosphatase 102 U/L (46-116) Total Protein 7.7 g/dL (6.4-8.2) Albumin 3.4 g/dL (3.4-5.0) Albumin/Globulin Ratio 0.8 (1.0-1.7) L Laboratory Tests 11/12/19 16:42 Laboratory Tests 11/12/19 16:42 EKG EKG [] Radiology/Procedures Radiology/Procedures [] Course & Med Decision Making Course & Med Decision Making Patient rates her pain a 9 out of 10. She states she is having some body aches in her back. Alert and oriented. Speaks in full clear sentences. PERRLA. Abdomen is soft and nontender. Throat tonsils are 2+ swollen with exudates and redness. Lungs are clear to auscultation all lobes. Bilateral tympanic reddened and tender with examination. Uvula midline. Patient is given Zofran ODT, Decadron, ibuprofen. Patient heart rate continues to be around 130 to 140. Patient did take med ications and has been eating a popsicle and ate at all. Patient is able to keep fluids down. IV is started and normal saline is infusing. Patient states she has not been drinking much of anything at all from the last 24 hours. Patient is given IV fluid. Her heart rate has come down to 90s to 100s. Dragon Disclaimer Dragon Disclaimer This electronic medical record was generated, in whole or in part, using a voice recognition dictation system. Departure Departure Impression: Primary Impression: Otitis media of both ears Additional Impressions: Strep sore throat Fever Disposition: HOME, SELF-CARE Condition: STABLE Referrals: NO PCP (PCP) Patient Instructions: Fever, Adult, Otitis Media, Adult, Strep Throat Additional Instructions: Take all medications until it is gone. Chew on ice chips or eat popcicles to stay hydrated. Take ibuprofen 600 mg every 6 hours or 1000 mg Tylenol every 8 hours Scripts Amoxicillin (AMOXICILLIN) 500 Mg Capsule 1 CAP PO BID for 10 Days, #20 CAP Prov: AILYN FOREMAN SCIENTIFIC INFORMATICS LEADER 11/12/19 Ondansetron (ONDANSETRON ODT) 4 Mg Tab.rapdis 1 TAB PO PRN Q6-8HRS, #16 TAB Prov: AILYN FOREMAN SCI[employer]IFIC INFORMATICS LEADER 11/12/19 Problem Qualifiers Primary Impression: Otitis media of both ears Otitis media type: suppurative Chronicity: acute Recurrence: non- recurrent Spontaneous tympanic membrane rupture: without spontaneous rupture Qualified Codes: H66.003 - Acute suppurative otitis media without spontaneous rupture of ear drum, bilateral Additional Impressions: Fever Fever type: unspecified Qualified Codes: R50.9 - Fever, unspecified AILYN FOREMAN SCIENTIFIC INFORMATICS LEADER Nov 12, 2019 15:52
[2019-11-12] MEDS ORDERED: ONDANSETRON ODT 4 MG TAB.RAPDIS. PO ONE (16:15)
[2019-11-12] MEDS ORDERED: IBUPROFEN 200 MG TABLET. PO ONE (16:15)
[2019-11-12] MEDS ORDERED: DEXAMETHASONE 4 MG TABLET PO ONE (16:15)
[2019-11-12] MEDS ORDERED: IV NORMAL SALINE 1000ML BAG 1,000 ML IV ONE ×2 (16:45)
[2019-11-12 16:48] LABS: BASO % 0 % (0-3); EOS % 0 % (0-3); HEMATOCRIT 40.6 % (36.0-47.0); HEMOGLOBIN 13.4 g/dL (12.0-15.5); LYMPH # 0.5 x10^3/uL (1.0-4.8); LYMPH % 3 % (24-48); MEAN CORPUSCULAR HEMOGLOBIN 30 pg (25-35); MEAN CORPUSCULAR HGB CONC 33 g/dL (31-37); MEAN CORPUSCULAR VOLUME 90 fL (79-100); MONO # 0.5 x10^3/uL (0.0-1.1); MONO % 3 % (0-9); NEUT # 14.7 x10^3/uL (1.8-7.7); NEUT % 93 % (31-73); PLATELET COUNT 225 x10^3/uL (140-400); RED BLOOD COUNT 4.52 x10^6/uL (3.50-5.40); RED CELL DISTRIBUTION WIDTH 13.6 % (11.5-14.5); WHITE BLOOD COUNT 15.8 x10^3/uL (4.0-11.0)
[2019-11-12 17:07] LABS: CALCIUM 8.8 mg/dL (8.5-10.1); CREATININE 0.7 mg/dL (0.6-1.0); GFR 104.6; POTASSIUM 3.4 mmol/L (3.5-5.1)
[2019-11-12 17:09] LABS: ALBUMIN 3.4 g/dL (3.4-5.0); ALBUMIN/GLOBULIN RATIO 0.8 (1.0-1.7); TOTAL BILIRUBIN 0.9 mg/dL (0.2-1.0); TOTAL PROTEIN 7.7 g/dL (6.4-8.2)
[2019-11-12 17:29] LABS: % BANDS 7 % (0-9); % LYMPHS 9 % (24-48); % MONOS 2 % (0-10); % SEGS 82 % (35-66); PLT ESTIMATE ADEQUATE (ADEQUATE)
== END 2019-11-12 18:14 | disposition home or self-care (01) ==
LOC: ER 15:27
DX: H66.003 Acute suppurative otitis media without spontaneous rupture of ear drum, bilateral (principal); J02.0 Streptococcal pharyngitis; B95.5 Unspecified streptococcus as the cause of diseases classified elsewhere; R50.9 Fever, unspecified; M54.9 Dorsalgia, unspecified; F41.9 Anxiety disorder, unspecified; F32.9 Major depressive disorder, single episode, unspecified; Z98.890 Other specified postprocedural states
CPT/HCPCS: 36415; 80053; 85007; 85025; 87880; 99284; J7030; J8540; Q0162

== ENCOUNTER 2020-01-07 14:02 | Emergency (ER) | payer SELFPAY ==
[~2020-01-07] VITALS: Ht 160 cm; Wt 70.4 kg
[~2020-01-07 14:02] MED LIST changes: +AMOX500C PO
[2020-01-07 14:24] VITALS: BP 118/65
[2020-01-07] MEDS ORDERED: KETOROLAC 30 MG/ML VIAL. IVP ONE (14:30)
--- NOTE | 2020-01-07 14:31 | PHYS DOC ---
Past Medical History Past Medical History: Anxiety, Depression, Other Additional Past Medical Histor: preeclampsia Past Surgical History: Other Additional Past Surgical Histo: RIGHT HAND REPAIR Smoking Status: Never Smoker Alcohol Use: Occasionally Drug Use: None Adult General Chief Complaint Chief Complaint: CHEST PAIN HPI HPI Patient is a 24 year old female who presents with awoke this morning with mid chest pressure she rates a 6 out of 10 that makes her feel short of breath at times. She states she does have anxiety which would make her feel like she has palpitations. She states that nothing makes it better but moving her arms or reaching for anything makes it worse. Denies fever, cough, travel, nausea, vomiting, diarrhea, weakness, dizziness, headache, vision changes, numbness or tingling. Review of Systems Review of Systems Respiratory: Denies cough. +shortness of breath [] Cardiovascular: Mid chest pressure All other systems were reviewed and found to be within normal limits, except as documented in this note. Current Medications Current Medications Current Medications Medications (Trade) Dose Ordered Sig/Jah Start Time Stop Time Status Last Admin Dose Admin Acetaminophen (Tylenol) 650 mg 1X ONCE 01/07/20 15:00 01/07/20 15:01 DC 01/07/20 15:17 650 MG Famotidine (Pepcid Vial) 20 mg 1X ONCE 01/07/20 15:00 01/07/20 15:01 DC 01/07/20 15:17 20 MG Ketorolac Tromethamine (Toradol 30mg Vial) 30 mg 1X ONCE 01/07/20 14:30 01/07/20 14:49 DC 01/07/20 14:30 30 MG Allergies Allergies Allergies Coded Allergies Type Severity Reaction Last Updated Verified No Known Drug Allergies 12/31/13 No Physical Exam Physical Exam Constitutional: Well developed, well nourished, no acute distress, non-toxic appearance. [] HENT: Normocephalic, atraumatic, bilateral external ears normal, oropharynx moist, no oral exudates, nose normal. [] Eyes: PERRLA, EOMI, conjunctiva normal, no discharge. [] Neck: Normal range of motion, no tenderness, supple, no stridor. [] Cardiovascular:Heart rate regular rhythm, no murmur [] Lungs & Thorax: Bilateral breath sounds clear to auscultation [] Abdomen: Bowel sounds normal, soft, no tenderness, no masses, no pulsatile masses. [] Skin: Warm, dry, no erythema, no rash. [] Back: No tenderness, no CVA tenderness. [] Extremities: No tenderness, no cyanosis, no clubbing, ROM intact, no edema. [] Neurologic: Alert and oriented X 3, normal motor function, normal sensory function, no focal deficits noted. [] Psychologic: Affect normal, judgement normal, mood normal. Normal Physical Exam [] Current Patient Data Vital Signs Vital Signs Date Time Temp Pulse Resp B/P (MAP) Pulse Ox O2 Delivery O2 Flow Rate FiO2 01/07/20 14:24 98.1 82 18 118/65 (82) 100 Room Air 98.1 Lab Values Laboratory Tests Test 01/07/20 14:20 01/07/20 14:30 01/07/20 14:38 White Blood Count 8.6 x10^3/uL (4.0-11.0) Red Blood Count 4.58 x10^6/uL (3.50-5.40) Hemoglobin 13.7 g/dL (12.0-15.5) Hematocrit 40.9 % (36.0-47.0) Mean Corpuscular Volume 89 fL (79-100) Mean Corpuscular Hemoglobin 30 pg (25-35) Mean Corpuscular Hemoglobin Concent 34 g/dL (31-37) Red Cell Distribution Width 13.7 % (11.5-14.5) Platelet Count 263 x10^3/uL (140-400) Neutrophils (%) (Auto) 62 % (31-73) Lymphocytes (%) (Auto) 29 % (24-48) Monocytes (%) (Auto) 6 % (0-9) Eosinophils (%) (Auto) 2 % (0-3) Basophils (%) (Auto) 1 % (0-3) Neutrophils # (Auto) 5.3 x10^3/uL (1.8-7.7) Lymphocytes # (Auto) 2.4 x10^3/uL (1.0-4.8) Monocytes # (Auto) 0.5 x10^3/uL (0.0-1.1) Eosinophils # (Auto) 0.2 x10^3/uL (0.0-0.7) Basophils # (Auto) 0.1 x10^3/uL (0.0-0.2) D-Dimer (Gloria) 0.29 ug/mlFEU (0.00-0.50) Sodium Level 144 mmol/L (136-145) Potassium Level 3.7 mmol/L (3.5-5.1) Chloride Level 104 mmol/L (98-107) Carbon Dioxide Level 30 mmol/L (21-32) Anion Gap 10 (6-14) Blood Urea Nitrogen 15 mg/dL (7-20) Creatinine 0.8 mg/dL (0.6-1.0) Estimated GFR (Cockcroft-Gault) 89.7 BUN/Creatinine Ratio 19 (6-20) Glucose Level 71 mg/dL (70-99) Calcium Level 8.6 mg/dL (8.5-10.1) Total Bilirubin 0.6 mg/dL (0.2-1.0) Aspartate Amino Transferase (AST) 15 U/L (15-37) Alanine Aminotransferase (ALT) 17 U/L (14-59) Alkaline Phosphatase 94 U/L (46-116) Troponin I Quantitative < 0.017 ng/mL (0.000-0.055) Total Protein 7.2 g/dL (6.4-8.2) Albumin 3.5 g/dL (3.4-5.0) Albumin/Globulin Ratio 0.9 (1.0-1.7) L Urine Collection Type Unknown Urine Color Yellow Urine Clarity Clear Urine pH 8.0 (<5.0-8.0) Urine Specific [place] 1.020 (1.000-1.030) Urine Protein Negative mg/dL (NEG-TRACE) Urine Glucose (UA) Negative mg/dL (NEG) Urine Ketones (Stick) Negative mg/dL (NEG) Urine Blood Negative (NEG) Urine Nitrite Negative (NEG) Urine Bilirubin Negative (NEG) Urine Urobilinogen Dipstick 0.2 mg/dL (0.2 mg/dL) Urine Leukocyte Esterase Small (NEG) Urine RBC 0 /HPF (0-2) Urine WBC Occ /HPF (0-4) Urine Squamous Epithelial Cells Many /LPF Urine Amorphous Sediment Present /HPF Urine Bacteria Few /HPF (0-FEW) Urine Opiates Screen Neg (NEG) Urine Methadone Screen Neg (NEG) Urine Barbiturates Neg (NEG) Urine Phencyclidine Screen Neg (NEG) Urine Amphetamine/Methamphetamine Neg (NEG) Urine Benzodiazepines Screen Neg (NEG) Urine Cocaine Screen Neg (NEG) Urine Cannabinoids Screen Neg (NEG) Urine Ethyl Alcohol Neg (NEG) POC Urine HCG, Qualitative Hcg positive (Negative) Laboratory Tests 01/07/20 14:20 Laboratory Tests 01/07/20 14:20 EKG EKG Sinus Rhythm and no STEMI[] Interpretation Time: [address] Bah Radiology/Procedures Radiology/Procedures [] Course & Med Decision Making Course & Med Decision Making Pertinent Labs and Imaging studies reviewed. (See chart for details) Vital signs wnl. Alert and oriented. Speaks in full clear sentences. Skin pink warm and dry. Lungs are clear to auscultation. No extremity swelling. No calf tenderness. EKG shows sinus Rhythm. Patient to follow-up with an OB doctor. Patient did take Keflex for a urinary tract infection. Patient take Tylenol for her pain. [] Dragon Disclaimer Dragon Disclaimer This electronic medical record was generated, in whole or in part, using a voice recognition dictation system. Departure Departure Impression: Primary Impression: Additional Impression: Chest pain Disposition: HOME, SELF-CARE Condition: LEFT WITHOUT BEING SEEN Referrals: NO PCP (PCP) Patient Instructions: ABCs of , Chest Wall Pain, [id number] Additional Instructions: Follow up with OB as soon as possible. Drink plenty of fluids. Begin vitamins. Take medications with food and as prescribed. Scripts Cephalexin (KEFLEX) 500 Mg Capsule 1 CAP PO BID for 7 Days, #14 CAP 0 Refills Prov: AILYN FOREMAN APRN 01/07/20 Problem Qualifiers Primary Impression: Weeks of gestation: unspecified Qualified Codes: Z34.90 - Encounter for supervision of normal , unspecified, unspecified trimester Additional Impression: Chest pain Chest pain type: unspecified Qualified Codes: R07.9 - Chest pain, unspecified AILYN FOREMAN APRN Jan 07, 2020 14:31
[2020-01-07 14:37] LABS: BASO # 0.1 x10^3/uL (0.0-0.2); BASO % 1 % (0-3); EOS # 0.2 x10^3/uL (0.0-0.7); EOS % 2 % (0-3); HEMATOCRIT 40.9 % (36.0-47.0); HEMOGLOBIN 13.7 g/dL (12.0-15.5); LYMPH # 2.4 x10^3/uL (1.0-4.8); LYMPH % 29 % (24-48); MEAN CORPUSCULAR HEMOGLOBIN 30 pg (25-35); MEAN CORPUSCULAR HGB CONC 34 g/dL (31-37); MEAN CORPUSCULAR VOLUME 89 fL (79-100); MONO # 0.5 x10^3/uL (0.0-1.1); MONO % 6 % (0-9); NEUT # 5.3 x10^3/uL (1.8-7.7); NEUT % 62 % (31-73); PLATELET COUNT 263 x10^3/uL (140-400); RED BLOOD COUNT 4.58 x10^6/uL (3.50-5.40); RED CELL DISTRIBUTION WIDTH 13.7 % (11.5-14.5); WHITE BLOOD COUNT 8.6 x10^3/uL (4.0-11.0)
[2020-01-07 14:52] LABS: CALCIUM 8.6 mg/dL (8.5-10.1); CREATININE 0.8 mg/dL (0.6-1.0); GFR 89.7; POTASSIUM 3.7 mmol/L (3.5-5.1)
[2020-01-07 14:58] LABS: ALBUMIN 3.5 g/dL (3.4-5.0); ALBUMIN/GLOBULIN RATIO 0.9 (1.0-1.7); TOTAL BILIRUBIN 0.6 mg/dL (0.2-1.0); TOTAL PROTEIN 7.2 g/dL (6.4-8.2)
[2020-01-07] MEDS ORDERED: FAMOTIDINE 20 MG/2 ML VIAL IVP ONE (15:00)
[2020-01-07] MEDS ORDERED: ACETAMINOPHEN 325 MG TABLET. PO ONE (15:00)
[2020-01-07 15:24] LABS: BILIRUBIN,URINE NEGATIVE (NEG); CLARITY,URINE CLEAR; COLOR,URINE YELLOW; NITRITE,URINE NEGATIVE (NEG); PROTEIN,URINE NEGATIVE (NEG-TRACE); UROBILINOGEN,URINE 0.2 mg/dL (0.2 mg/dL)
[2020-01-07 15:31] LABS: BARBITURATES NEG (NEG); BENZODIAZEPINES NEG (NEG); CANNABINOIDS NEG (NEG); COCAINE NEG (NEG); METHADONE NEG (NEG); OPIATES NEG (NEG); PHENCYCLIDINE NEG (NEG)
[2020-01-07 15:32] LABS: AMPHETAMINE/METHAMPHETAMINE NEG (NEG)
[2020-01-07 15:42] LABS: AMORPHOUS SEDIMENT,UR PRESENT /HPF; BACTERIA,URINE FEW /HPF (0-FEW); RBC,URINE 0 /HPF (0-2); SQUAMOUS EPITHELIAL CELL,UR MANY /LPF; WBC,URINE OCC /HPF (0-4)
[2020-01-07] MEDS ORDERED: CEPH-264 PO (15:51)
--- NOTE | 2020-01-08 05:22 | EKG ---
[facility] [address] [place] [address] Test Date: 2020-01-07 Test Time: 14:21:19 Pat Name: MIKI GONZALEZ Department: Room: Gender: F [employer] Cutting Machine Operator: : 1995 Requested By: SIRIA ROSS Order Number: [id number] Reading MD: Measurements Intervals [place] Rate: 93 P: -7 NC: 120 QRS: 92 QRSD: 84 T: 66 QT: 368 QTc: 460 Interpretive Statements SINUS RHYTHM RIGHTWARD AXIS LVH WITH REPOLARIZATION ABNORMALITY QRS(T) CONTOUR ABNORMALITY CONSIDER ANTEROSEPTAL MYOCARDIAL DAMAGE ABNORMAL ECG RI6.01 No previous ECG available for comparison
== END 2020-01-07 16:52 | disposition home or self-care (01) ==
LOC: ER 14:02
DX: O26.891 Other specified pregnancy related conditions, first trimester (principal); R07.89 Other chest pain; F41.9 Anxiety disorder, unspecified; R06.02 Shortness of breath; R00.2 Palpitations; F32.9 Major depressive disorder, single episode, unspecified; Z98.890 Other specified postprocedural states
CPT/HCPCS: 36415; 80053; 80307; 81001; 81025; 84484; 84702; 85025; 85379; 87086; 96374; 96375; 99284; J1885; J3490; 93005

== ENCOUNTER 2020-03-29 21:07 | Emergency (ER) | payer SELFPAY ==
[~2020-03-29] VITALS: Ht 162.6 cm; Wt 77.0 kg
[~2020-03-29 21:07] MED LIST changes: +CEPH-264 PO
[2020-03-29 21:18] VITALS: BP 120/61
--- NOTE | 2020-03-29 22:10 | RAD ---
Study: CR ANKLE RIGHT 2V Indication: Right ankle pain. Comparison: None. Findings: Acute transversely oriented fracture at the distal fibula occurring below the level of the ankle joint. The fracture is nondisplaced but minimally comminuted. No acute fracture seen elsewhere. Ankle mortise is symmetric noting the absence of weightbearing. Predominantly lateral ankle swelling. Impression: Nondisplaced but mildly comminuted Tee type A distal fibula fracture. Electronically signed by: DILIP COLORADO MD (03/29/2020 10:07 PM) [id number]
--- NOTE | 2020-03-29 22:28 | PHYS DOC ---
Past Medical History Past Medical History: Anxiety, Depression, Other Additional Past Medical Histor: preeclampsia Past Surgical History: Other Additional Past Surgical Histo: RIGHT HAND REPAIR Smoking Status: Never Smoker Alcohol Use: None Drug Use: None General Adult EDM: Chief Complaint: LOWEREXTREMITY INJURY HPI: HPI: 24-year-old female history of anxiety and depression approximately 16 weeks presents the ED with complaints of right anterior and lateral ankle pain that occurred after patient rolled her ankle 2 nights ago. Patient states she was walking on uneven concrete and believes she everted her ankle. Has been unable to bear weight and is hopping on her left foot. No prior injury or surgery to the right ankle. Follows with [facility] at [facility]. Estimated due date is September 15 and she has had a confirmed intrauterine . Review of systems: Denies associated fever, chills, head injury, headache, neck pain, nausea, vomiting, knee or fibular head pain, hip pain, and color changes, rash, unilateral leg swelling, vaginal bleeding, abnormal vaginal discharge, abdominal or pelvic pain, dysuria, hematuria or flank pain. Review of Systems: Review of Systems: Constitutional: Denies fever or chills. [] Eyes: Denies change in visual acuity. [] HENT: Denies nasal congestion or sore throat. [] Respiratory: Denies cough or shortness of breath. [] Cardiovascular: Denies chest pain or edema. [] GI: Denies abdominal pain, nausea, vomiting, bloody stools or diarrhea. [] : Denies dysuria. [] Musculoskeletal: Denies back pain or joint pain. [] Integument: Denies rash. [] Neurologic: Denies headache, focal weakness or sensory changes. [] Endocrine: Denies polyuria or polydipsia. [] Lymphatic: Denies swollen glands. [] Psychiatric: Denies depression or anxiety. [] Allergies: Allergies: Allergies Coded Allergies Type Severity Reaction Last Updated Verified No Known Drug Allergies 12/31/13 No Physical Exam: PE: Constitutional: Well developed, well nourished, no acute distress, non-toxic appearance. [] HENT: Normocephalic, atraumatic, bilateral external ears normal, oropharynx moist, no oral exudates, nose normal. [] Eyes: EOMI, conjunctiva normal, no discharge. [] Neck: Normal range of motion, no tenderness, supple, no stridor. [] Cardiovascular:Heart rate regular rhythm, no murmur [] Lungs & Thorax: Bilateral breath sounds clear to auscultation [] Abdomen: Bowel sounds normal, soft, no tenderness, no masses, no pulsatile masses. [] Skin: Warm, dry, no erythema, no rash. [] Back: No tenderness, no CVA tenderness. [] Extremities: No tenderness, no cyanosis, no clubbing, ROM intact, no edema, no TTP over fibular head or knee, ecchymosis and swelling over right lateral ankle with TTP over the right lateral malleoli and anterior ankle, right DP/TP pulses intact, no pain at the base of the foot or tarsals Neurologic: Alert and oriented X 3, normal motor function, normal sensory function, no focal deficits noted. [] Psychologic: Affect normal, judgement normal, mood normal. [] Current Patient Data: Vital Signs: Vital Signs Date Time Temp Pulse Resp B/P (MAP) Pulse Ox O2 Delivery O2 Flow Rate FiO2 03/29/20 21:18 98.1 91 16 120/61 (80) 99 Room Air 98.1 EKG: EKG: [] Radiology/Procedures: Radiology/Procedures: IMAGING REPORT Signed PATIENT: MIKI GONZALEZ FACCOUNT: [id number] : 1995 LOCATION: ER AGE: 24 SEX: F EXAM STATUS: REG ER ORD. PHYSICIAN: OLI CASTELLANOS DO REASON: right ankle pain PROCEDURE: ANKLE RIGHT 2V Study: CR ANKLE RIGHT 2V Indication: Right ankle pain. Comparison: None. Findings: Acute transversely oriented fracture at the distal fibula occurring below the level of the ankle joint. The fracture is nondisplaced but minimally comminuted. No acute fracture seen elsewhere. Ankle mortise is symmetric noting the absence of weightbearing. Predominantly lateral ankle swelling. Impression: Nondisplaced but mildly comminuted Tee type A distal fibula fracture. Electronically signed by: DILIP COLORADO MD (03/29/2020 10:07 PM) [id number] DICTATED and SIGNED BY: DILIP COLORADO MD DATE: 03/29/20 2207 Posterior right ankle splint applied by RN. The splint is checked with good/appropriate stabilization of the injury. Distal capillary refill normal and distal neurologic function intact Impression: Concern for closed nondisplaced right distal fibular fracture. I did review this case with orthopedic surgeon Dr. Emmanuel, will follow patient in the clinic in the next 7 days, nonoperative management. No cam boots in ed stock room. Posterior splint placed and crutches instructions given. Patient with no abdominal pain or vaginal bleeding, heart rate was 160. Patient with no signs of head trauma. Lengthy discussion regarding pain medication in -patient very uncomfortable even with Tylenol. Will provide a short dose of Lortab for comfort, pt understands risk of addiction/withdrawal. strict ED return precautions given for compartment syndrome. Urgent PMD follow-up. All patient's questions were answered and she was stable at time of discharge. Course & Med Decision Making: Course & Med Decision Making Pertinent Labs and Imaging studies reviewed. (See chart for details) [] Dragon Disclaimer: Dragon Disclaimer: This electronic medical record was generated, in whole or in part, using a voice recognition dictation system. Departure Departure Impression: Primary Impression: Fracture of distal fibula Additional Impression: Disposition: 01 HOME, SELF-CARE Condition: STABLE Referrals: NO PCP (PCP) GABI EMMANUEL MD Patient Instructions: Crutch Use, Fibular Fracture, Ankle, Adult, Undisplaced, Treated with Immobilization, Splint Care, [id number] Scripts Hydrocodone/Apap 5-325 (NORCO 5-325 TABLET) 1 Each Tablet 1 TAB PO PRN Q6HRS PRN for PAIN for 3 Days, #10 TAB 0 Refills Prov: OLI CASTELLANOS DO 03/29/20 Justicifation of Admission Dx: Justifications for Admission: Justification of Admission Dx: N/A OLI CASTELLANOS DO Mar 29, 2020 22:28
--- NOTE | 2020-03-29 23:10 | NUR ---
Called to ER to assess FHT on patient 16 weeks gestation. FHT obtained, 160's in lower abdomen
[2020-03-29] MEDS ORDERED: HYDR-3164 PO (23:30)
== END 2020-03-29 23:34 | disposition home or self-care (01) ==
LOC: ER 21:07
DX: O26.892 Other specified pregnancy related conditions, second trimester (principal); S82.831A Other fracture of upper and lower end of right fibula, initial encounter for closed fracture; M79.671 Pain in right foot; R60.0 Localized edema; F41.9 Anxiety disorder, unspecified; F32.9 Major depressive disorder, single episode, unspecified; Z98.890 Other specified postprocedural states; Z3A.16 16 weeks gestation of pregnancy; X58.XXXA Exposure to other specified factors, initial encounter; Y93.89 Activity, other specified; Y92.89 Other specified places as the place of occurrence of the external cause; Y99.8 Other external cause status
CPT/HCPCS: 29515; 73600; 99283

== ENCOUNTER 2020-03-30 14:49 | Emergency (ER) | payer SELFPAY ==
[~2020-03-30] VITALS: Ht 162.6 cm; Wt 76.8 kg
[2020-03-30 15:52] VITALS: BP 104/61
--- NOTE | 2020-03-30 16:30 | PHYS DOC ---
Past Medical History Past Medical History: Anxiety, Depression, Other Additional Past Medical Histor: preeclampsia Past Surgical History: Other Additional Past Surgical Histo: RIGHT HAND REPAIR Smoking Status: Never Smoker Alcohol Use: None Drug Use: None General Adult EDM: Chief Complaint: WOUND CHECK HPI: HPI: Patient is a 24 year old female who presents to the emergency department for sp lint recheck. Patient states she was diagnosed with a fracture of her right fibula at this emergency department last night and had a splint placed. She states that the splint has become very uncomfortable and is digging into her right ankle. She denies any numbness, tingling, weakness, or discoloration of the affected right foot. She currently rates the discomfort a 5 out of 10 on the pain scale, she denies any alleviating factors. Patient states that she tried to loosen the bandages holding the splint in place and that did not provide much relief in the discomfort. Review of Systems: Review of Systems: Complete review of systems is negative unless otherwise documented in the HPI Heart Score: Risk Factors: Risk Factors: DM, Current or recent (<one month) smoker, HTN, HLP, family history of CAD, obesity. Risk Scores: Score 0 - 3: 2.5% MACE over next 6 weeks - Discharge Home Score 4 - 6: 20.3% MACE over next 6 weeks - Admit for Clinical Observation Score 7 - 10: 72.7% MACE over next 6 weeks - Early Invasive Strategies Allergies: Allergies: Allergies Coded Allergies Type Severity Reaction Last Updated Verified No Known Drug Allergies 12/31/13 No Physical Exam: PE: Constitutional: Well developed, well nourished, no acute distress, non-toxic appearance. [] HENT: Normocephalic, atraumatic, bilateral external ears normal, nose normal. [] Eyes: PERRLA, EOMI, conjunctiva normal, no discharge. [] Neck: Normal range of motion, no stridor. [] Cardiovascular:Heart rate regular rhythm Lungs & Thorax: Respirations even and unlabored, no retractions, no respiratory distress Skin: Warm, dry, no erythema, no rash. [] Extremities: RLE: No cyanosis, cap refill < 2 seconds, splint in place without padding. Neurologic: Alert and oriented X 3, no focal deficits noted. [] Psychologic: Affect normal, judgement normal, mood normal. [] Current Patient Data: Vital Signs: Vital Signs Date Time Temp Pulse Resp B/P (MAP) Pulse Ox O2 Delivery O2 Flow Rate FiO2 03/30/20 15:52 98.7 93 16 104/61 (75) 98 Room Air 98.7 EKG: EKG: [] Radiology/Procedures: Radiology/Procedures: [] Course & Med Decision Making: Course & Med Decision Making Pertinent Labs and Imaging studies reviewed. (See chart for details) [] Dragon Disclaimer: Dragon Disclaimer: This electronic medical record was generated, in whole or in part, using a voice recognition dictation system. Departure Departure Impression: Primary Impression: Aftercare for cast or splint check or change Disposition: HOME, SELF-CARE Condition: STABLE Referrals: NO PCP (PCP) Patient Instructions: Cast or Splint Care, [id number] Additional Instructions: Follow-up with Dr. Pereyra next Thursday as planned, return to the ER if symptoms worsen. Justicifation of Admission Dx: Justifications for Admission: Justification of Admission Dx: N/A Splinting Splinting : Location: Right lower extremity Hand-Made Type: orthoglass (Posterior short leg) Pre-Proc Neuro Vasc Exam: normal Post-Proc Neuro Vasc Exam: normal, unchanged from pre-exam Progress Ortho-Glass splint was placed by Dr. Guardado to the right lower extremity after the extremity was padded heavily, patient tolerated procedure well, reported relief of discomfort after new splint application. ELKE SANDOVAL APRN Mar 30, 2020 16:30
== END 2020-03-30 16:38 | disposition home or self-care (01) ==
LOC: ER 14:49
DX: S82.831D Other fracture of upper and lower end of right fibula, subsequent encounter for closed fracture with routine healing (principal); F41.9 Anxiety disorder, unspecified; F32.9 Major depressive disorder, single episode, unspecified; Z98.890 Other specified postprocedural states; X58.XXXD Exposure to other specified factors, subsequent encounter
CPT/HCPCS: 29515; 99283

== ENCOUNTER 2020-05-30 16:37 | Observation (INO) | payer SELFPAY ==
[2020-05-30] MEDS ORDERED: IV RINGERS,LACTATED 1000ML 1,000 ML IV SCH (17:13)
[2020-05-30 17:23] LABS: BILIRUBIN,URINE NEGATIVE (NEG); CLARITY,URINE CLEAR; COLOR,URINE YELLOW; NITRITE,URINE NEGATIVE (NEG); PH,URINE 6.5 (<5.0-8.0); PROTEIN,URINE NEGATIVE (NEG-TRACE); UROBILINOGEN,URINE 0.2 mg/dL (0.2 mg/dL)
[2020-05-30 17:29] LABS: SQUAMOUS EPITHELIAL CELL,UR MANY /LPF
[2020-05-30 17:30] LABS: BACTERIA,URINE MANY /HPF (0-FEW)
[2020-05-30 17:31] LABS: RBC,URINE RARE /HPF (0-2); WBC,URINE OCC /HPF (0-4)
== END 2020-05-30 18:40 | disposition home or self-care (01) ==
LOC: 3 SO LND 16:37
PROVIDERS: ADMIT Obstetrics & Gynecology; ATTEND Obstetrics & Gynecology
DX: O62.9 Abnormality of forces of labor, unspecified (principal); O12.02 Gestational edema, second trimester; Z3A.24 24 weeks gestation of pregnancy; Z79.899 Other long term (current) drug therapy
CPT/HCPCS: 81001; 87086; G0378; G0379

== ENCOUNTER 2020-07-31 20:39 | Observation (INO) | payer SELFPAY ==
[2020-07-31] MEDS ORDERED: IV RINGERS,LACTATED 1000ML 1,000 ML IV SCH (21:00)
[2020-07-31 21:17] LABS: BILIRUBIN,URINE NEGATIVE (NEG); CLARITY,URINE CLOUDY; COLOR,URINE YELLOW; NITRITE,URINE NEGATIVE (NEG); PH,URINE 6.5 (<5.0-8.0); PROTEIN,URINE NEGATIVE (NEG-TRACE); UROBILINOGEN,URINE 0.2 mg/dL (0.2 mg/dL)
[2020-07-31 21:22] LABS: AMORPHOUS SEDIMENT,UR PRESENT /HPF; BACTERIA,URINE MANY /HPF (0-FEW); RBC,URINE 0 /HPF (0-2)
[2020-07-31 21:23] LABS: BARBITURATES NEG (NEG); BENZODIAZEPINES NEG (NEG); CANNABINOIDS NEG (NEG); COCAINE NEG (NEG); METHADONE NEG (NEG); OPIATES NEG (NEG); PHENCYCLIDINE NEG (NEG)
[2020-07-31 21:26] LABS: AMNIO PT NEGATIVE
[2020-07-31 21:29] LABS: AMPHETAMINE/METHAMPHETAMINE NEG (NEG)
[2020-07-31] MEDS ORDERED: hydrOXYzine 25 MG TABLET PO PRN (21:30)
[2020-07-31] MEDS ORDERED: ACETAMINOPHEN 500 MG TABLET PO ONE (22:00)
== END 2020-07-31 22:35 | disposition home or self-care (01) ==
LOC: 3 SO LND 20:39
PROVIDERS: ADMIT Obstetrics & Gynecology; ATTEND Obstetrics & Gynecology
DX: O62.9 Abnormality of forces of labor, unspecified (principal); O26.893 Other specified pregnancy related conditions, third trimester; R10.30 Lower abdominal pain, unspecified; M25.512 Pain in left shoulder; Z3A.33 33 weeks gestation of pregnancy; Z79.899 Other long term (current) drug therapy
CPT/HCPCS: 36415; 80307; 81001; 84112; 87086; G0378; G0379

== ENCOUNTER 2020-08-19 00:48 | Observation (INO) | payer SELFPAY ==
[2020-08-19 01:38] LABS: BILIRUBIN,URINE NEGATIVE (NEG); CLARITY,URINE CLOUDY; COLOR,URINE YELLOW; NITRITE,URINE NEGATIVE (NEG); PH,URINE 6.5 (<5.0-8.0); PROTEIN,URINE 30 mg/dL (NEG-TRACE); UROBILINOGEN,URINE 0.2 mg/dL (0.2 mg/dL)
[2020-08-19 01:47] LABS: BACTERIA,URINE MANY /HPF (0-FEW)
[2020-08-19] MEDS ORDERED: ASPI-630 PO (16:26)
[2020-08-21] MEDS ORDERED: DOCU-109 PO (12:34)
[2020-08-21] MEDS ORDERED: IBUP-1060 PO (12:34)
== END 2020-08-19 01:27 | disposition home or self-care (01) ==
LOC: 3 SO LND 00:48
PROVIDERS: ADMIT Obstetrics & Gynecology; ATTEND Obstetrics & Gynecology
DX: O62.9 Abnormality of forces of labor, unspecified (principal); Z20.828 Contact with and (suspected) exposure to other viral communicable diseases; O99.891 Other specified diseases and conditions complicating pregnancy; M54.9 Dorsalgia, unspecified; Z3A.35 35 weeks gestation of pregnancy
CPT/HCPCS: 81001; G0378; G0379

== ENCOUNTER 2020-10-15 16:01 | Emergency (ER) | payer SELFPAY ==
[~2020-10-15] VITALS: Ht 162.6 cm; Wt 84.0 kg
[~2020-10-15 16:01] MED LIST changes: +ASPI-630 PO; +DOCU-109 PO
[2020-10-15 16:57] LABS: BILIRUBIN,URINE NEGATIVE (NEG); CLARITY,URINE CLEAR; COLOR,URINE YELLOW; NITRITE,URINE NEGATIVE (NEG); PH,URINE 7.5 (<5.0-8.0); PROTEIN,URINE NEGATIVE (NEG-TRACE); UROBILINOGEN,URINE 0.2 mg/dL (0.2 mg/dL)
[2020-10-15 17:08] LABS: BACTERIA,URINE 0 /HPF (0-FEW); RBC,URINE 0 /HPF (0-2); WBC,URINE RARE /HPF (0-4)
--- NOTE | 2020-10-15 17:10 | RAD ---
STUDY: US Abdomen Complete INDICATION: Abdominal pain. COMPARISON: None. TECHNIQUE: Real-time grayscale and color Doppler sonographic evaluation of the abdomen. Findings: Pancreas: The adequately assessed portion of the pancreas is unremarkable with no appreciable mass or ductal dilatation. Liver: Within normal limits for size and echotexture. Aorta/IVC/Main Portal Vein: Patent main portal vein with hepatopedal flow. Unremarkable IVC at the li ary. Nonaneurysmal aorta. Gall Bladder: Postprandial appearance with luminal underdistention. No Visible stones or sludge. No s onographic Emmanuel's sign was observed. Common Bile Duct: Within normal limits at 0.5 cm transverse. Right Kidney: Measures 12.3 cm in length. Normal cortical thickness and echogenicity. No hydronephros is. Left Kidney: Measures 12.0 cm in length. Normal cortical thickness and echogenicity. No hydronephrosi s. Spleen: Normal in size and echotexture. Miscellaneous: None. Impression: Postprandial appearance of the gallbladder which limits evaluation. Taking this into consideration, n o findings that would suggest acute cholecystitis. Collectively no acute abnormality is seen by sonog laurent to account for the patient's symptoms. Electronically signed by: DILIP COLORADO MD (10/15/2020 5:07 PM) [id number]
[2020-10-15 17:30] VITALS: BP 116/77
--- NOTE | 2020-10-15 17:47 | PHYS DOC ---
Past Medical History Past Medical History: Anxiety, Depression, Other Additional Past Medical Histor: preeclampsia Past Surgical History: Other Additional Past Surgical Histo: RIGHT HAND REPAIR Smoking Status: Never Smoker Alcohol Use: None Drug Use: None General Adult EDM: Chief Complaint: ABDOMINAL PAIN HPI: HPI: Patient is a 25 year old female with history of anxiety, who presents to the ED today complaining of 9 out of 10 cramping, burning abdominal pain around her umbilicus, symptoms began a week ago and are worse after eating spicy foods. Patient denies any chance she is , she states she had a vaginal delivery 2 weeks ago. Denies any nausea vomiting. Denies any fever. Denies any concerns for STDs or unusual vaginal discharge. She states she had a negative pelvic exam 2 weeks ago done at the [facility] office. Review of Systems: Review of Systems: Constitutional: Denies fever or chills. [] Eyes: Denies change in visual acuity. [] HENT: Denies nasal congestion or sore throat. [] Respiratory: Denies cough or shortness of breath. [] Cardiovascular: Denies chest pain or edema. [] GI: Reports abdominal pain, denies nausea, vomiting, bloody stools or diarrhea. [] : Denies dysuria. [] Musculoskeletal: Denies back pain or joint pain. [] Integument: Denies rash. [] Neurologic: Denies headache, focal weakness or sensory changes. [] Psychiatric: Denies depression or anxiety. [] Heart Score: Risk Factors: Risk Factors: DM, Current or recent (<one month) smoker, HTN, HLP, family history of CAD, obesity. Risk Scores: Score 0 - 3: 2.5% MACE over next 6 weeks - Discharge Home Score 4 - 6: 20.3% MACE over next 6 weeks - Admit for Clinical Observation Score 7 - 10: 72.7% MACE over next 6 weeks - Early Invasive Strategies Allergies: Allergies: Allergies Coded Allergies Type Severity Reaction Last Updated Verified No Known Drug Allergies 12/31/13 No Physical Exam: PE: Constitutional: Well developed, well nourished, no acute distress, non-toxic appearance. [] HENT: Normocephalic, atraumatic, bilateral external ears normal, oropharynx moist, no oral exudates, nose normal. [] Eyes: PERRLA, EOMI, conjunctiva normal, no discharge. [] Neck: Normal range of motion, no tenderness, supple, no stridor. [] Cardiovascular:Heart rate regular rhythm, no murmur [] Lungs & Thorax: Bilateral breath sounds clear to auscultation [] Abdomen: Bowel sounds normal, soft, no tenderness, no masses, no pulsatile masses. [] Skin: Warm, dry, no erythema, no rash. [] Back: No tenderness, no CVA tenderness. [] Extremities: No tenderness, no cyanosis, no clubbing, ROM intact, no edema. [] Neurologic: Alert and oriented X 3, normal motor function, normal sensory function, no focal deficits noted. [] Psychologic: Affect normal, judgement normal, mood normal. [] Current Patient Data: Labs: Laboratory Tests Test 10/15/20 16:05 10/15/20 16:30 Urine Collection Type Void Urine Color Yellow Urine Clarity Clear Urine pH 7.5 (<5.0-8.0) Urine Specific [place] 1.020 (1.000-1.030) Urine Protein Negative mg/dL (NEG-TRACE) Urine Glucose (UA) Negative mg/dL (NEG) Urine Ketones (Stick) Negative mg/dL (NEG) Urine Blood Negative (NEG) Urine Nitrite Negative (NEG) Urine Bilirubin Negative (NEG) Urine Urobilinogen Dipstick 0.2 mg/dL (0.2 mg/dL) Urine Leukocyte Esterase Negative (NEG) Urine RBC 0 /HPF (0-2) Urine WBC Rare /HPF (0-4) Urine Squamous Epithelial Cells Occ /LPF Urine Bacteria 0 /HPF (0-FEW) POC Urine HCG, Qualitative Hcg negative (Negative) Vital Signs: Vital Signs Date Time Temp Pulse Resp B/P (MAP) Pulse Ox O2 Delivery O2 Flow Rate FiO2 10/15/20 16:30 98.4 82 20 133/70 (91) 99 Room Air 98.4 EKG: EKG: [] Radiology/Procedures: Radiology/Procedures: []PROCEDURE: ABDOMEN COMPLETE STUDY: US Abdomen Complete INDICATION: Abdominal pain. COMPARISON: None. TECHNIQUE: Real-time grayscale and color Doppler sonographic evaluation of the abdomen. Findings: Pancreas: The adequately assessed portion of the pancreas is unremarkable with no appreciable mass or ductal dilatation. Liver: Within normal limits for size and echotexture. Aorta/IVC/Main Portal Vein: Patent main portal vein with hepatopedal flow. Unremarkable IVC at the liver. Nonaneurysmal aorta. Gall Bladder: Postprandial appearance with luminal underdistention. No Visible stones or sludge. No sonographic Emmanuel's sign was observed. Common Bile Duct: Within normal limits at 0.5 cm transverse. Right Kidney: Measures 12.3 cm in length. Normal cortical thickness and echogenicity. No hydronephrosis. Left Kidney: Measures 12.0 cm in length. Normal cortical thickness and echogenicity. No hydronephrosis. Spleen: Normal in size and echotexture. Miscellaneous: None. Impression: Postprandial appearance of the gallbladder which limits evaluation. Taking this into consideration, no findings that would suggest acute cholecystitis. Collectively no acute abnormality is seen by sonography to account for the patient's symptoms. Electronically signed by: DILIP COLORADO MD (10/15/2020 5:07 PM) [id number] DICTATED and SIGNED BY: DILIP COLORADO MD DATE: 10/15/20 [id number] 0 Course & Med Decision Making: Course & Med Decision Making Pertinent Labs and Imaging studies reviewed. (See chart for details) This is a 25-year-old female patient presented to the ED today with pain around her umbilicus, symptoms began 1 week ago and worse after eating spicy foods. N egative urine hCG, abdominal ultrasound is negative for any acute findings. Discharge to home. Follow-up with [facility] or PCP in 1 week. OTC pain relievers recommended. Shelby Disclaimer: Shelby Disclaimer: This electronic medical record was generated, in whole or in part, using a voice recognition dictation system. Departure Departure Impression: Primary Impression: Abdominal pain Qualified Codes: R10.33 - Periumbilical pain Disposition: 01 DC HOME SELF CARE/HOMELESS Condition: STABLE Referrals: UNKNOWN PCP NAME (PCP) Follow-up in 1 week with your doctor Patient Instructions: Abdominal Pain (Nonspecific) Additional Instructions: You were evaluated in the emergency room for abdominal pain, your abdominal ultrasound is negative for any acute findings. Your urine has no infection. Please follow-up with your own doctor in the next 1 week, avoid eating spicy foods, greasy foods, fried foods, and salty foods. AZ CARRILLO APRN Oct 15, 2020 17:47
== END 2020-10-15 18:03 | disposition home or self-care (01) ==
LOC: ER 16:01
DX: R10.33 Periumbilical pain (principal); F41.9 Anxiety disorder, unspecified; F32.9 Major depressive disorder, single episode, unspecified; Z98.890 Other specified postprocedural states
CPT/HCPCS: 76700; 81001; 81025; 99284

== ENCOUNTER 2020-12-06 21:47 | Emergency (ER) | payer MEDICAID ==
[~2020-12-06] VITALS: Ht 160 cm; Wt 86.3 kg
[2020-12-06] MEDS ORDERED: SUMA25TA3 PO (22:10)
[2020-12-06] MEDS ORDERED: PROM25TA10 PO (22:10)
--- NOTE | 2020-12-06 22:10 | PHYS DOC ---
Past Medical History Past Medical History: Anxiety, Depression, Migraines, Other Additional Past Medical Histor: preeclampsia (GERARDOAZ APRN) Past Surgical History: Other Additional Past Surgical Histo: RIGHT HAND REPAIR (MEGANNilsaAZ READ) Smoking Status: Never Smoker Alcohol Use: None Drug Use: None (GERARDOAZ READ) General Adult EDM: Chief Complaint: HEADACHE HPI: HPI: Patient is a 25 year old female with history of anxiety, depression, migraine headaches, who presents to the ED today complaining of a 10 out of 10 generalized migraine headache with photophobia, no sensitivity, nausea, symptoms began this morning. Patient states pain is intermittent and throbbing. She states she tried taking Advil with no relief. She states this migraine headache is consistent with her regular migraines. Denies this being the worst headache in her life. (GERARDOAZ READ) Review of Systems: Review of Systems: Constitutional: Denies fever or chills. [] Eyes: Denies change in visual acuity. [] HENT: Denies nasal congestion or sore throat. [] Respiratory: Denies cough or shortness of breath. [] Cardiovascular: Denies chest pain or edema. [] GI: Reports nausea. Denies abdominal pain, nausea, vomiting, bloody stools or diarrhea. [] : Denies dysuria. [] Musculoskeletal: Denies back pain or joint pain. [] Integument: Denies rash. [] Neurologic: Reports migraine headache, denies focal weakness or sensory changes. [] Psychiatric: Denies depression or anxiety. [] (AZ CARRILLO APRN) Heart Score: Risk Factors: Risk Factors: DM, Current or recent (<one month) smoker, HTN, HLP, family history of CAD, obesity. Risk Scores: Score 0 - 3: 2.5% MACE over next 6 weeks - Discharge Home Score 4 - 6: 20.3% MACE over next 6 weeks - Admit for Clinical Observation Score 7 - 10: 72.7% MACE over next 6 weeks - Early Invasive Strategies (AZ CARRILLO APRN) Current Medications: Current Medications Medications (Trade) Dose Ordered Sig/Jah Start Time Stop Time Status Last Admin Dose Admin Diphenhydramine HCl (Benadryl) 25 mg 1X ONCE 12/06/20 22:15 12/06/20 22:16 UNV Ketorolac Tromethamine (Toradol Im) 60 mg 1X ONCE 12/06/20 22:15 12/06/20 22:16 UNV Prochlorperazine Edisylate (Compazine) 10 mg 1X ONCE 12/06/20 22:15 12/06/20 22:16 UNV (AZ CARRILLO APRN) Allergies: Allergies: Allergies Coded Allergies Type Severity Reaction Last Updated Verified No Known Drug Allergies 12/31/13 No (AZ CARRILLO APRN) Physical Exam: PE: Constitutional: Well developed, well nourished, no acute distress, non-toxic appearance. [] HENT: Normocephalic, atraumatic, bilateral external ears normal, oropharynx moist, no oral exudates, nose normal. [] Eyes: PERRLA, EOMI, conjunctiva normal, no discharge. [] Neck: Normal range of motion, no tenderness, supple, no stridor. [] Cardiovascular:Heart rate regular rhythm, no murmur [] Lungs & Thorax: Bilateral breath sounds clear to auscultation [] Abdomen: Bowel sounds normal, soft, no tenderness, no masses, no pulsatile masses. [] Skin: Warm, dry, no erythema, no rash. [] Back: No tenderness, no CVA tenderness. [] Extremities: No tenderness, no cyanosis, no clubbing, ROM intact, no edema. [] Neurologic: Alert and oriented X 3, normal motor function, normal sensory function, no focal deficits noted. Cranial nerves II through XII intact Psychologic: Affect normal, judgement normal, mood normal. [] (AZ CARRILLO APRN) EKG: EKG: [] (AZ CARRILLO APRN) Radiology/Procedures: Radiology/Procedures: [] (AZ CARRILLO APRN) Course & Med Decision Making: Course & Med Decision Making Pertinent Labs and Imaging studies reviewed. (See chart for details) This is a 25-year-old female patient presenting to the ED today with a migraine headache that began today. Patient has a history of migraines and states this headache is consistent with her regular migraines. Given Toradol, Compazine Benadryl in the ED. Discharged with Imitrex and promethazine. Follow-up with PCP in 1 week (AZ CARRILLO APRN) Shelby Disclaimer: Shelby Disclaimer: This electronic medical record was generated, in whole or in part, using a voice recognition dictation system. (AZ CARRILLO APRN) Departure Departure Impression: Primary Impression: Migraine headache Qualified Codes: G43.009 - Migraine without aura, not intractable, without status migrainosus Disposition: DC HOME SELF CARE/HOMELESS Condition: STABLE Referrals: UNKNOWN PCP NAME (PCP) Follow-up with your doctor in 1 week Patient Instructions: Migraine Headache Additional Instructions: You were seen for migraine headache. Take the prescribed medication as needed for your headache. Follow-up with your doctor next week Scripts Promethazine Hcl (PROMETHAZINE HCL) 25 Mg Tablet 1 TAB PO PRN Q6HRS, #20 TAB Prov: AZ CARRILLO APRN 12/06/20 Sumatriptan Succinate (IMITREX) 25 Mg Tablet 25 MG PO ONCE PRN for MIGRAINE HEADACHE, #9 TAB Take 1 tablet at the onset of a migraine headache, repeat in 2 hours if symptoms continue. Do not take more than 2 tablets in 24 hours Prov: AZ CARRILLO APRN 12/06/20 Attending Signature Attending Signature I have reviewed the PA/[employer] OPERATOR/PAVER's note and plan of care. I was available for consultation as needed during the patient's visit in the emergency department. I agree with the clinical impression, plan, and disposition. (JOSH GARCIA DO) AZ CARRILLO APRN Dec 06, 2020 22:10 JOSH GARCIA DO Dec 07, 2020 00:07
[2020-12-06] MEDS ORDERED: PROCHLORPERAZINE 10 MG/2 ML VIAL. IM ONE (22:15)
[2020-12-06] MEDS ORDERED: KETOROLAC 60 MG/2 ML VIAL. IM ONE (22:15)
[2020-12-06] MEDS ORDERED: diphenhydrAMINE HCL 25 MG CAPSULE PO ONE (22:15)
[2020-12-06 22:30] VITALS: BP 112/67
== END 2020-12-06 22:39 | disposition home or self-care (01) ==
LOC: ER 21:47
DX: G43.909 Migraine, unspecified, not intractable, without status migrainosus (principal); F41.9 Anxiety disorder, unspecified; F32.9 Major depressive disorder, single episode, unspecified
CPT/HCPCS: 81025; 96372; 99284; J0780; J1885; Q0163

== ENCOUNTER 2021-02-28 15:41 | Emergency (ER) | payer MEDICAID ==
[~2021-02-28] VITALS: Ht 160 cm; Wt 90.0 kg
[~2021-02-28 15:41] MED LIST changes: +PROM25TA10 PO; +SUMA25TA3 PO
[2021-02-28 17:05] LABS: BASO # 0.1 x10^3/uL (0.0-0.2); BASO % 1 % (0-3); EOS # 0.2 x10^3/uL (0.0-0.7); EOS % 2 % (0-3); HEMATOCRIT 40.7 % (36.0-47.0); HEMOGLOBIN 13.7 g/dL (12.0-15.5); LYMPH # 2.2 x10^3/uL (1.0-4.8); LYMPH % 23 % (24-48); MEAN CORPUSCULAR HEMOGLOBIN 30 pg (25-35); MEAN CORPUSCULAR HGB CONC 34 g/dL (31-37); MEAN CORPUSCULAR VOLUME 89 fL (79-100); MONO # 0.4 x10^3/uL (0.0-1.1); MONO % 4 % (0-9); NEUT # 6.6 x10^3/uL (1.8-7.7); NEUT % 70 % (31-73); PLATELET COUNT 283 x10^3/uL (140-400); RED BLOOD COUNT 4.59 x10^6/uL (3.50-5.40); RED CELL DISTRIBUTION WIDTH 13.7 % (11.5-14.5); WHITE BLOOD COUNT 9.6 x10^3/uL (4.0-11.0)
[2021-02-28 17:05] LABS: BILIRUBIN,URINE NEGATIVE (NEG); CLARITY,URINE CLEAR; COLOR,URINE YELLOW; NITRITE,URINE NEGATIVE (NEG); PROTEIN,URINE 30 mg/dL (NEG-TRACE); UROBILINOGEN,URINE 0.2 mg/dL (0.2 mg/dL)
[2021-02-28 17:14] LABS: BACTERIA,URINE MANY /HPF (0-FEW); RBC,URINE OCC /HPF (0-2)
[2021-02-28 17:14] LABS: CALCIUM 8.5 mg/dL (8.5-10.1); CREATININE 0.6 mg/dL (0.6-1.0); GFR 123.9; POTASSIUM 4.2 mmol/L (3.5-5.1)
[2021-02-28 17:19] LABS: ALBUMIN 3.6 g/dL (3.4-5.0); TOTAL PROTEIN 7.6 g/dL (6.4-8.2)
[2021-02-28 17:20] LABS: ALBUMIN/GLOBULIN RATIO 0.9 (1.0-1.7); MAGNESIUM 2.1 mg/dL (1.8-2.4); TOTAL BILIRUBIN 0.4 mg/dL (0.2-1.0)
--- NOTE | 2021-02-28 17:50 | ED.ADGEN ---
Past Medical History Past Medical History: Anxiety, Depression, Migraines, Other Additional Past Medical Histor: preeclampsia Past Surgical History: Other Additional Past Surgical Histo: RIGHT HAND REPAIR Smoking Status: Never Smoker Alcohol Use: Occasionally Drug Use: None General Adult EDM: Chief Complaint: ABDOMINAL PAIN HPI: HPI: Patient is a 25 year old female who presents emergency department with complaints of left-sided flank pain for the last 3 days. Patient states that her stomach has had a crampy-like pain that causes her entire abdomen to hurt and feels like a burning sensation. She denies any nausea, vomiting, diarrhea, dysuria, hematuria, increased urinary frequency, back pain, or difficulty voiding. Patient denies any fever, cough, body aches, or fatigue. At the time of my HPI the patient denied any pain at all. She denies concerns of states that her menstrual cycle should come any day now her last menstrual cycle was on January 25. Patient reports having irregular menstrual cycle since having her child. She states she uses condoms as contraception. She denies any irregular vaginal discharge, vaginal odor. Review of Systems: Review of Systems: Complete ROS is negative unless otherwise noted in HPI. Allergies: Allergies: Allergies Coded Allergies Type Severity Reaction Last Updated Verified No Known Drug Allergies 12/31/13 No Physical Exam: PE: See Above Constitutional: Well developed, well nourished, no acute distress, non-toxic appearance, obese. [] HENT: Normocephalic, atraumatic, bilateral external ears normal, nose normal. [] Eyes: PERRLA, EOMI, conjunctiva normal, no discharge. [] Neck: Normal range of motion, no stridor. [] Cardiovascular:Heart rate regular rhythm Lungs & Thorax: Respirations even and unlabored, no retractions, no respiratory distress Abdomen: soft, no tenderness, no rebound tenderness, no guarding, no palpable mass, Back: No CVA tenderness, nontender Skin: Warm, dry, no erythema, no rash. [] Extremities: No cyanosis, ROM intact, no edema. [] Neurologic: Alert and oriented X 3, normal motor, normal sensory, no focal deficits noted. [] Psychologic: Affect normal, judgement normal, mood normal. [] Current Patient Data: Labs: Laboratory Tests Test 02/28/21 16:36 02/28/21 16:44 02/28/21 16:57 Urine Collection Type Unknown Urine Color Yellow Urine Clarity Clear Urine pH 6.0 (<5.0-8.0) Urine Specific [place] >=1.030 (1.000-1.030) Urine Protein 30 mg/dL (NEG-TRACE) Urine Glucose (UA) Negative mg/dL (NEG) Urine Ketones (Stick) Negative mg/dL (NEG) Urine Blood Negative (NEG) Urine Nitrite Negative (NEG) Urine Bilirubin Negative (NEG) Urine Urobilinogen Dipstick 0.2 mg/dL (0.2 mg/dL) Urine Leukocyte Esterase Moderate (NEG) Urine RBC Occ /HPF (0-2) Urine WBC 11-20 /HPF (0-4) Urine Squamous Epithelial Cells Many /LPF Urine Bacteria Many /HPF (0-FEW) Urine Mucus Marked /LPF POC Urine HCG, Qualitative Hcg negative (Negative) White Blood Count 9.6 x10^3/uL (4.0-11.0) Red Blood Count 4.59 x10^6/uL (3.50-5.40) Hemoglobin 13.7 g/dL (12.0-15.5) Hematocrit 40.7 % (36.0-47.0) Mean Corpuscular Volume 89 fL (79-100) Mean Corpuscular Hemoglobin 30 pg (25-35) Mean Corpuscular Hemoglobin Concent 34 g/dL (31-37) Red Cell Distribution Width 13.7 % (11.5-14.5) Platelet Count 283 x10^3/uL (140-400) Neutrophils (%) (Auto) 70 % (31-73) Lymphocytes (%) (Auto) 23 % (24-48) L Monocytes (%) (Auto) 4 % (0-9) Eosinophils (%) (Auto) 2 % (0-3) Basophils (%) (Auto) 1 % (0-3) Neutrophils # (Auto) 6.6 x10^3/uL (1.8-7.7) Lymphocytes # (Auto) 2.2 x10^3/uL (1.0-4.8) Monocytes # (Auto) 0.4 x10^3/uL (0.0-1.1) Eosinophils # (Auto) 0.2 x10^3/uL (0.0-0.7) Basophils # (Auto) 0.1 x10^3/uL (0.0-0.2) Sodium Level 143 mmol/L (136-145) Potassium Level 4.2 mmol/L (3.5-5.1) Chloride Level 105 mmol/L (98-107) Carbon Dioxide Level 29 mmol/L (21-32) Anion Gap 9 (6-14) Blood Urea Nitrogen 11 mg/dL (7-20) Creatinine 0.6 mg/dL (0.6-1.0) Estimated GFR (Cockcroft-Gault) 123.9 BUN/Creatinine Ratio 18 (6-20) Glucose Level 121 mg/dL (70-99) H Calcium Level 8.5 mg/dL (8.5-10.1) Magnesium Level 2.1 mg/dL (1.8-2.4) Total Bilirubin 0.4 mg/dL (0.2-1.0) Aspartate Amino Transferase (AST) 42 U/L (15-37) H Alanine Aminotransferase (ALT) 73 U/L (14-59) H Alkaline Phosphatase 144 U/L (46-116) H Total Protein 7.6 g/dL (6.4-8.2) Albumin 3.6 g/dL (3.4-5.0) Albumin/Globulin Ratio 0.9 (1.0-1.7) L Lipase 102 U/L (73-393) Laboratory Tests 02/28/21 16:57 Laboratory Tests 02/28/21 16:57 Vital Signs: Vital Signs Date Time Temp Pulse Resp B/P (MAP) Pulse Ox O2 Delivery O2 Flow Rate FiO2 02/28/21 16:32 98.2 93 12 150/74 (99) 97 Room Air 98.2 EKG: EKG: [] Heart Score: C/O Chest Pain: No Risk Scores: Score 0 - 3: 2.5% MACE over next 6 weeks - Discharge Home Score 4 - 6: 20.3% MACE over next 6 weeks - Admit for Clinical Observation Score 7 - 10: 72.7% MACE over next 6 weeks - Early Invasive Strategies Radiology/Procedures: Radiology/Procedures: [] Course & Med Decision Making: Course & Med Decision Making Pertinent Labs and Imaging studies reviewed. (See chart for details) Patient is a 25-year-old female who presents emergency department for evaluation of left-sided abdominal pain CBC is unremarkable, CMP reveals a glucose of 121, AST of 42, ALT of 73, alk phos of 144 otherwise unremarkable; patient's UA revealed moderate leukoesterase with 11-20 white blood cells and many bacteria, UCG is negative I advised patient that her pain is likely due to urinary tract infection. I also informed her of her mildly elevated liver enzymes. I will prescribe the patient antibiotics for treatment of the infection. Recommend follow-up with primary care doctor in the next 1 to 2 days for further evaluation of elevated liver enzymes. The patient reported that she had drank recently over the previous weekend. She denies any nausea, vomiting, or abdominal tenderness to palpation. Patient verbalized an understanding of home care, medications, follow-up, and return to ED instructions and was in agreement with the plan of care. [] Shelby Disclaimer: Shelby Disclaimer: This electronic medical record was generated, in whole or in part, using a voice recognition dictation system. Departure Departure Impression: Primary Impression: UTI (lower urinary tract infection) Additional Impression: Elevated liver enzymes Disposition: HOME / SELF CARE / HOMELESS Condition: STABLE Referrals: UNKNOWN PCP NAME (PCP) Patient Instructions: Liver Panel, Urinary Tract Infection, [id number] Additional Instructions: Fill prescription(s) and take as directed. Avoid bladder irritants such as caffeine, carbonation, and spicy foods. Increase clear fluids. Your liver enzymes were elevated today recommend that he follow-up with your primary care doctor about this. Follow up with your primary care doctor in 1-2 days, return to the ER if symptoms worsen or fever develops. [facility] [address] [place] [address] [facility] [address] [place] [address] [facility] [address] [facility] [place] [address] [facility] [address] [place] [address] [facility] [address] [place] [address] [facility] [address] [place] [address] [facility] [address] [place] [address] [facility] [address] [place] [address] [facility] [address] [place] [address] [facility] [address] [place] [address] Scripts Cephalexin (KEFLEX) 750 Mg Capsule 1 CAP PO BID for 7 Days, #14 CAP 0 Refills Prov: ELKE SANDOVAL APRN 02/28/21 Problem Qualifiers ELKE SANDOVAL APRN February 28, 2021 17:50
[2021-02-28 18:02] VITALS: BP 108/51
[2021-02-28] MEDS ORDERED: CEPH750C9 PO (18:11)
== END 2021-02-28 18:21 | disposition home or self-care (01) ==
LOC: ER 15:41
DX: N39.0 Urinary tract infection, site not specified (principal); R74.8 Abnormal levels of other serum enzymes; G43.909 Migraine, unspecified, not intractable, without status migrainosus
CPT/HCPCS: 36415; 80053; 81001; 81025; 83690; 83735; 85025; 87086; 99283

== ENCOUNTER 2021-04-05 20:39 | Emergency (ER) | payer MEDICAID ==
[~2021-04-05] VITALS: Ht 160 cm; Wt 90.9 kg
[~2021-04-05 20:39] MED LIST changes: +CEPH750C9 PO
[2021-04-05] MEDS ORDERED: CEPH500C PO (21:52)
--- NOTE | 2021-04-05 21:53 | PHYS DOC ---
Past Medical History Past Medical History: Anxiety, Depression, Migraines, Other Additional Past Medical Histor: preeclampsia Past Surgical History: Other Additional Past Surgical Histo: RIGHT HAND REPAIR Smoking Status: Never Smoker Alcohol Use: Occasionally Drug Use: None General Adult EDM: Chief Complaint: BREAST PAIN/INJURY HPI: HPI: Patient is a 25 year old female who presents with pea-sized swollen tender lump on the right areola. Patient states over the last 3 days is gotten slightly bigger. There is no cellulitis or fever. No drainage. Patient states that she is still having milk intermittently come out of her breast. She is not currently still breast-feeding. Patient's child is 7 months old at this time. Review of Systems: Review of Systems: Constitutional: Denies fever or chills. [] Eyes: Denies change in visual acuity. [] HENT: Denies nasal congestion or sore throat. [] Respiratory: Denies cough or shortness of breath. [] Cardiovascular: Denies chest pain or edema. [] GI: Denies abdominal pain, nausea, vomiting, bloody stools or diarrhea. [] : Denies dysuria. [] Musculoskeletal: Denies back pain or joint pain. + Right breast pain [] Integument: Denies rash. +Try to nipple pea sized pain [] Neurologic: Denies headache, focal weakness or sensory changes. [] Endocrine: Denies polyuria or polydipsia. [] Lymphatic: Denies swollen glands. [] Psychiatric: Denies depression or anxiety. [] Heart Score: C/O Chest Pain: No Risk Factors: Risk Factors: DM, Current or recent (<one month) smoker, HTN, HLP, family history of CAD, obesity. Risk Scores: Score 0 - 3: 2.5% MACE over next 6 weeks - Discharge Home Score 4 - 6: 20.3% MACE over next 6 weeks - Admit for Clinical Observation Score 7 - 10: 72.7% MACE over next 6 weeks - Early Invasive Strategies Allergies: Allergies: Allergies Coded Allergies Type Severity Reaction Last Updated Verified No Known Drug Allergies 12/31/13 No Physical Exam: PE: Constitutional: Well developed, well nourished, no acute distress, non-toxic appearance. [] HENT: Normocephalic, atraumatic, bilateral external ears normal, oropharynx moist, no oral exudates, nose normal. [] Eyes: PERRLA, EOMI, conjunctiva normal, no discharge. [] Neck: Normal range of motion, no tenderness, supple, no stridor. [] Cardiovascular:Heart rate regular rhythm, no murmur [] Lungs & Thorax: Bilateral breath sounds clear to auscultation [] Abdomen: Bowel sounds normal, soft, no tenderness, no masses, no pulsatile masses. [] Skin: Warm, dry, no erythema, no rash. Pea-sized tender lump to right breast at approximately 9:00. [] Back: No tenderness, no CVA tenderness. [] Extremities: No tenderness, no cyanosis, no clubbing, ROM intact, no edema. [] Neurologic: Alert and oriented X 3, normal motor function, normal sensory function, no focal deficits noted. [] Psychologic: Affect normal, judgement normal, mood normal. [] Current Patient Data: Labs: Laboratory Tests Test 04/05/21 21:20 POC Urine HCG, Qualitative Hcg negative (Negative) EKG: EKG: [] Radiology/Procedures: Radiology/Procedures: [] Course & Med Decision Making: Course & Med Decision Making Pertinent Labs and Imaging studies reviewed. (See chart for details) See HPI. Alert and oriented x4. Ambulatory with a steady gait. Speaks in full clear sentences. No discharge from the nipple seen. No cellulitis. No drainage. Tenderness to the pea-sized tender lump on the 9 PM side of the areola. Afebrile. [] Dragon Disclaimer: Dragon Disclaimer: This electronic medical record was generated, in whole or in part, using a voice recognition dictation system. Departure Departure Impression: Primary Impression: Breast abscess Disposition: 01 HOME / SELF CARE / HOMELESS Condition: STABLE Referrals: UNKNOWN PCP NAME (PCP) Patient Instructions: Abscess Additional Instructions: Take medication as prescribed. Take ibuprofen or Tylenol to help with your pain. Follow-up with your [facility] or your primary care physician. Scripts Cephalexin (CEPHALEXIN) 500 Mg Capsule 1 CAP PO QID, #40 CAP Prov: AILYN FOREMAN APRN 04/05/21 AILYN FOREMAN APRN Apr 05, 2021 21:52
[2021-04-05 22:00] VITALS: BP 107/67
== END 2021-04-05 22:09 | disposition home or self-care (01) ==
LOC: ER 20:39
DX: N61.1 Abscess of the breast and nipple (principal); G43.909 Migraine, unspecified, not intractable, without status migrainosus
CPT/HCPCS: 81025; 99283

== ENCOUNTER 2021-06-13 20:56 | Emergency (ER) | payer MEDICAID ==
[~2021-06-13] VITALS: Ht 157.5 cm; Wt 90.9 kg
[~2021-06-13 20:56] MED LIST changes: +CEPH500C PO
[2021-06-13 21:25] VITALS: BP 120/79
[2021-06-13] MEDS ORDERED: AMOX875T PO (22:08)
--- NOTE | 2021-06-13 22:08 | PHYS DOC ---
Past Medical History Past Medical History: Anxiety, Depression, Migraines, Other Additional Past Medical Histor: preeclampsia, FATTY LIVER Past Surgical History: Other Additional Past Surgical Histo: RIGHT HAND REPAIR Smoking Status: Never Smoker Alcohol Use: None Drug Use: None General Adult EDM: Chief Complaint: EARACHE/EAR PAIN HPI: HPI: Patient is a 25 year old female with history of anxiety, depression, presenting today complaining of 6 out of 10 right ear pain described as sharp and constant, symptoms began today. Patient reports history of ear infections. Denies any fever, denies any drainage, denies any nausea or vomiting. Denies anything specifically exacerbating or relieving the pain. Review of Systems: Review of Systems: Constitutional: Denies fever or chills. [] Eyes: Denies change in visual acuity. [] HENT: Reports right ear pain. Denies nasal congestion or sore throat. [] Respiratory: Denies cough or shortness of breath. [] Cardiovascular: Denies chest pain or edema. [] GI: Denies abdominal pain, nausea, vomiting, bloody stools or diarrhea. [] : Denies dysuria. [] Musculoskeletal: Denies back pain or joint pain. [] Integument: Denies rash. [] Neurologic: Denies headache, focal weakness or sensory changes. [] Psychiatric: Denies depression or anxiety. [] Heart Score: C/O Chest Pain: N/A Risk Factors: Risk Factors: DM, Current or recent (<one month) smoker, HTN, HLP, family history of CAD, obesity. Risk Scores: Score 0 - 3: 2.5% MACE over next 6 weeks - Discharge Home Score 4 - 6: 20.3% MACE over next 6 weeks - Admit for Clinical Observation Score 7 - 10: 72.7% MACE over next 6 weeks - Early Invasive Strategies Allergies: Allergies: Allergies Coded Allergies Type Severity Reaction Last Updated Verified No Known Drug Allergies 12/31/13 No Physical Exam: PE: Constitutional: Well developed, well nourished, no acute distress, non-toxic appearance. [] HENT: Normocephalic, atraumatic, bilateral external ears normal, oropharynx moist, no oral exudates, nose normal. [] Right TM is mildly injected with small amount of cloudy fluid Eyes: PERRLA, EOMI, conjunctiva normal, no discharge. [] Neck: Normal range of motion, no tenderness, supple, no stridor. [] Cardiovascular:Heart rate regular rhythm, no murmur [] Lungs & Thorax: Bilateral breath sounds clear to auscultation [] Abdomen: Bowel sounds normal, soft, no tenderness, no masses, no pulsatile masses. [] Skin: Warm, dry, no erythema, no rash. [] Back: No tenderness, no CVA tenderness. [] Extremities: No tenderness, no cyanosis, no clubbing, ROM intact, no edema. [] Neurologic: Alert and oriented X 3, normal motor function, normal sensory function, no focal deficits noted. [] Psychologic: Affect normal, judgement normal, mood normal. [] EKG: EKG: [] Radiology/Procedures: Radiology/Procedures: [] Course & Med Decision Making: Course & Med Decision Making Pertinent Labs and Imaging studies reviewed. (See chart for details) Patient has otitis media. Discharged with amoxicillin. Tylenol/Motrin for pain or fever. . Dragon Disclaimer: Shelby Disclaimer: This electronic medical record was generated, in whole or in part, using a voice recognition dictation system. Departure Departure Impression: Primary Impression: Otitis media, right Qualified Codes: H66.91 - Otitis media, unspecified, right ear Disposition: HOME / SELF CARE / HOMELESS Condition: STABLE Referrals: NO PCP (PCP) Follow-up with your doctor in 1 to 2 weeks Patient Instructions: Otitis Media, Adult, [id number] Additional Instructions: You have an infection. Please take the prescribed antibiotics until completed. Follow-up with your doctor in 1 to 2 weeks Scripts Amoxicillin (AMOXICILLIN) 875 Mg Tablet 1 TAB PO BID, #20 TAB Prov: AZ CARRILLO APRN 06/13/21 AZ CARRILLO APRN Jun 13, 2021 22:08
== END 2021-06-13 22:38 | disposition home or self-care (01) ==
LOC: ER 20:56
DX: H66.91 Otitis media, unspecified, right ear (principal); F41.9 Anxiety disorder, unspecified; F32.9 Major depressive disorder, single episode, unspecified; G43.909 Migraine, unspecified, not intractable, without status migrainosus
CPT/HCPCS: 99283

== ENCOUNTER 2021-06-15 01:07 | Emergency (ER) | payer MEDICAID ==
[~2021-06-15] VITALS: Ht 160 cm; Wt 90.9 kg
[~2021-06-15 01:07] MED LIST changes: +AMOX875T PO
[2021-06-15 01:16] VITALS: BP 150/109
[2021-06-15] MEDS ORDERED: IBUP-1581 PO (01:31)
[2021-06-15] MEDS ORDERED: ACET10DR5 RIGHT EAR (01:31)
--- NOTE | 2021-06-15 01:31 | PHYS DOC ---
Past Medical History Past Medical History: Anxiety, Depression, Migraines, Other Additional Past Medical Histor: preeclampsia, FATTY LIVER Past Surgical History: Other Additional Past Surgical Histo: RIGHT HAND REPAIR Smoking Status: Never Smoker Alcohol Use: None Drug Use: None General Adult EDM: Chief Complaint: EARACHE/EAR PAIN HPI: HPI: Says pain radiates to the jaw, denies hearing loss, no fever or chills, no headache or neck stiffness/photophobia, was put on amoxicillin but said it has not been much better, 25-year-old female was seen here yesterday for right ear pain, she complains of pain around the ear canal, Review of Systems: Review of Systems: Constitutional: Denies fever or chills. [] Eyes: Denies change in visual acuity. [] HENT: Denies nasal congestion or sore throat. [Positive for right ear pain Respiratory: Denies cough or shortness of breath. [] Cardiovascular: Denies chest pain or edema. [] GI: Denies abdominal pain, nausea, vomiting, bloody stools or diarrhea. [] : Denies dysuria. [] Musculoskeletal: Denies back pain or joint pain. [] Integument: Denies rash. [] Neurologic: Denies headache, focal weakness or sensory changes. [] Endocrine: Denies polyuria or polydipsia. [] Lymphatic: Denies swollen glands. [] Psychiatric: Denies depression or anxiety. [] Heart Score: C/O Chest Pain: No Risk Factors: Risk Factors: DM, Current or recent (<one month) smoker, HTN, HLP, family h istory of CAD, obesity. Risk Scores: Score 0 - 3: 2.5% MACE over next 6 weeks - Discharge Home Score 4 - 6: 20.3% MACE over next 6 weeks - Admit for Clinical Observation Score 7 - 10: 72.7% MACE over next 6 weeks - Early Invasive Strategies Current Medications: Current Medications Medications (Trade) Dose Ordered Sig/Jah Start Time Stop Time Status Last Admin Dose Admin Acetaminophen/ Hydrocodone Bitart (Lortab 5/325) 1 tab 1X ONCE 06/15/21 01:30 06/15/21 01:31 UNV Ibuprofen (Motrin) 800 mg 1X ONCE 06/15/21 01:30 06/15/21 01:31 UNV Allergies: Allergies: Allergies Coded Allergies Type Severity Reaction Last Updated Verified No Known Drug Allergies 12/31/13 No Physical Exam: PE: Gen-well appearing, no acute distress Head- normocephalic/atraumatic, pharynx is clear, no masses or exudates ENT: atraumatic, oropharynx clear, there is some inflammation of the right ear canal, no purulent drainage however, no mastoid tenderness, tympanic membrane is visible and not bulging on either side neck: Supple, full range of motion, strength, no rigidity, no JVD lungs: No distress, speaks in full sentences cardiovascular: Regular rate, no JVD, peripheral circulation intact in all extremities abdomen: atraumatic, nondistended musculoskeletal: Full range of motion and strength in all extremities, atraumatic skin: Intact, no rashes neurologic: Alert and oriented x4, no focal deficits psych: Normal mood and affect EKG: EKG: [] Radiology/Procedures: Radiology/Procedures: [] Course & Med Decision Making: Course & Med Decision Making Pertinent Labs and Imaging studies reviewed. (See chart for details) [] Patient presents to the ER with what appears to be a case of otitis externa, will place an ear wick, will treat her pain and then start her on some acetic acid and Cortisporin eardrops, she can continue the amoxicillin, especially since she is on day #2, no signs of any abscess or any intracranial infection, patient is afebrile nontoxic-appearing, neurologically intact, no claudication for ED work-up or imaging, will have her follow-up closely with ENT Dr. Gonzales in the next 48 hours Patient was seen in the ED for acute otitis externa, there is no apparent evidence of any emergency medical pathology at this time, patient was advised follow-up with their primary care provider /physician in the next 24-48 hours, with ENT Dr. Gonzales in the next 48 hours as well and to return to the ED before then if any new or worsening / concerning symptoms had developed. All questions and concerns were addressed at time of disposition Dragon Disclaimer: Dragon Disclaimer: This electronic medical record was generated, in whole or in part, using a voice recognition dictation system. Departure Departure Impression: Primary Impression: Otitis externa Qualified Codes: H60.501 - Unspecified acute noninfective otitis externa, right ear Disposition: HOME / SELF CARE / HOMELESS Condition: IMPROVED Referrals: NO PCP (PCP) TEREZA GONZALES MD Patient Instructions: Otitis Externa Additional Instructions: You have a case of otitis externa which is an infection in the ear canal itself, leave the ear wick in for the next couple of days this will help the eardrops and antibiotic drops get all the way down the ear canal, I want you to follow-up with the ear nose and throat doctor, I referred you to Dr. Tereza Gonzales I recommend that you follow-up with her in the next 48 to 72 hours, for pain please take ibuprofen 800 mg every 8 hours, as needed, return to the ER before follow-up if any new or worsening symptoms develop. I also recommend that you continue to take the entire course of the amoxicillin oral antibiotic pills Scripts Acetic Acid/Hydrocortisone (HYDROCORTISON-ACETIC ACID SOLN) 10 Ml Drops 3 DROP RIGHT EAR QID for 7 Days, #10 ML 0 Refills Prov: MELECIO KRAUSE MD 06/15/21 Ibuprofen (Motrin Ib) 200 Mg Capsule 800 MG PO TID, #30 CAP Prov: MELECIO KRAUSE MD 06/15/21 MELECIO KRAUSE MD Jun 15, 2021 01:31
[2021-06-15] MEDS ORDERED: HYDROcodone/APAP 5/325MG 1 TAB TABLET PO ONE (02:00)
[2021-06-15] MEDS ORDERED: NEOMYCIN/POLYMYXIN/HC OTIC SUSPENSION 10ML BOTTLE. AD ONE (02:00)
[2021-06-15] MEDS ORDERED: IBUPROFEN 400 MG TABLET. PO ONE (02:00)
[2021-06-15] MEDS ORDERED: ACETIC ACID 2% AD ONE (02:00)
== END 2021-06-15 01:48 | disposition home or self-care (01) ==
LOC: ER 01:07
DX: H60.501 Unspecified acute noninfective otitis externa, right ear (principal); G43.909 Migraine, unspecified, not intractable, without status migrainosus
CPT/HCPCS: 99284

== ENCOUNTER 2021-10-09 00:54 | Emergency (ER) | payer MEDICAID ==
[~2021-10-09] VITALS: Ht 160 cm; Wt 90.9 kg
[~2021-10-09 00:54] MED LIST changes: +ACET10DR5 RIGHT EAR; +CYCL10TA19 PO; -CYCL10TA2 PO; +IBUP-1581 PO
[2021-10-09 02:22] LABS: BILIRUBIN,URINE NEGATIVE (NEG); CLARITY,URINE CLOUDY; COLOR,URINE YELLOW; NITRITE,URINE NEGATIVE (NEG); PH,URINE 7.5 (<5.0-8.0); PROTEIN,URINE NEGATIVE (NEG-TRACE); UROBILINOGEN,URINE 0.2 mg/dL (0.2 mg/dL)
[2021-10-09] MEDS ORDERED: DICYCLOMINE 20 MG/2 ML VIAL. IM ONE (02:30)
[2021-10-09] MEDS ORDERED: ACETAMINOPHEN 500 MG TABLET PO ONE (02:30)
[2021-10-09 02:32] LABS: BASO # 0.1 x10^3/uL (0.0-0.2); BASO % 1 % (0-3); EOS # 0.3 x10^3/uL (0.0-0.7); EOS % 3 % (0-3); HEMATOCRIT 38.3 % (36.0-47.0); HEMOGLOBIN 12.9 g/dL (12.0-15.5); LYMPH # 2.5 x10^3/uL (1.0-4.8); LYMPH % 25 % (24-48); MEAN CORPUSCULAR HEMOGLOBIN 30 pg (25-35); MEAN CORPUSCULAR HGB CONC 34 g/dL (31-37); MEAN CORPUSCULAR VOLUME 89 fL (79-100); MONO # 0.5 x10^3/uL (0.0-1.1); MONO % 5 % (0-9); NEUT # 6.9 x10^3/uL (1.8-7.7); NEUT % 67 % (31-73); PLATELET COUNT 276 x10^3/uL (140-400); RED CELL DISTRIBUTION WIDTH 13.8 % (11.5-14.5); WHITE BLOOD COUNT 10.3 x10^3/uL (4.0-11.0)
[2021-10-09 02:37] LABS: AMORPHOUS SEDIMENT,UR PRESENT /HPF; BACTERIA,URINE 0 /HPF (0-FEW); RBC,URINE 0 /HPF (0-2); WBC,URINE RARE /HPF (0-4)
[2021-10-09 02:40] LABS: CALCIUM 8.7 mg/dL (8.5-10.1); CREATININE 0.6 mg/dL (0.6-1.0); GFR 122.8; POTASSIUM 3.5 mmol/L (3.5-5.1)
[2021-10-09 02:46] LABS: ALBUMIN/GLOBULIN RATIO 0.7 (1.0-1.7); TOTAL BILIRUBIN 0.3 mg/dL (0.2-1.0); TOTAL PROTEIN 7.4 g/dL (6.4-8.2)
[2021-10-09 05:00] VITALS: BP 110/68
--- NOTE | 2021-10-09 05:13 | RAD ---
EXAM: RIGHT UPPER QUADRANT ULTRASOUND. HISTORY: Postprandial abdominal pain. COMPARISON: None. FINDINGS: Sonographic evaluation of the right upper quadrant was performed. Hyperechogenicity of the hepatic parenchyma is consistent with diffuse hepatic steatosis. There are n o focal lesions. The gallbladder is contracted but otherwise unremarkable without evidence of stones, wall thickening or pericholecystic fluid. There is no sonographic Emmanuel sign. The common duct measures 6 mm. The vi sualized portions of the head and body of the pancreas reveal no abnormality. The right kidney measures 12.9 cm. Cortical thickness and echogenicity are preserved. There is no hyd ronephrosis. The visualized portions of the abdominal aorta and inferior vena cava are grossly patent and normal i n caliber. IMPRESSION: 1. Diffuse hepatic steatosis. Electronically signed by: Sen Nava MD (10/09/2021 5:11 AM) [facility]
[2021-10-09] MEDS ORDERED: FAMO-63 PO (05:30)
[2021-10-09] MEDS ORDERED: ACET500T68 PO (05:30)
[2021-10-09] MEDS ORDERED: DICY10CA3 PO (05:30)
--- NOTE | 2021-10-09 05:30 | PHYS DOC ---
Past Medical History Past Medical History: Anxiety, Depression, Migraines, Other Additional Past Medical Histor: preeclampsia, FATTY LIVER Past Surgical History: Other Additional Past Surgical Histo: RIGHT HAND REPAIR Smoking Status: Never Smoker Alcohol Use: None Drug Use: None Adult General Chief Complaint Chief Complaint: ABDOMINAL PAIN HPI HPI The patient is a 26-year-old female with a history of anxiety and depression who presents for evaluation of 3 days of epigastric abdominal discomfort. Discomfort is sharp and focal, though quite intermittent, and seems to be brought on or made worse by food. Associated mild nausea. No associated fever s, vomiting, upper respiratory congestion/rhinorrhea, cough, sore throat, shortness of breath or chest pain of any kind, right-sided or lower abdominal pain of any kind, flank pain, midline back pain, dysuria, hematuria, polyuria or oliguria, unusual vaginal discharge or bleeding, changes in bowel habits. Patient is alert and pleasantly and appropriately interactive and in no acute distress with appropriate vital signs upon initial evaluation here in the emergency department. Review of Systems Review of Systems A 12 point review of systems was completed and was negative except where noted in HPI above. Current Medications Current Medications Current Medications Medications (Trade) Dose Ordered Sig/Jah Start Time Stop Time Status Last Admin Dose Admin Acetaminophen (Tylenol) 1,000 mg 1X ONCE 10/09/21 02:30 10/09/21 02:31 DC 10/09/21 02:39 1,000 MG Dicyclomine HCl (Bentyl) 20 mg 1X ONCE 10/09/21 02:30 10/09/21 02:31 DC 10/09/21 02:40 20 MG Allergies Allergies Allergies Coded Allergies Type Severity Reaction Last Updated Verified No Known Drug Allergies 12/31/13 No Physical Exam Physical Exam 26-year-old female appearing nontoxic and in no acute distress. Head is n ormocephalic and atraumatic. Neck is supple and nontender. Oropharynx is moist. Lungs are clear to auscultation at all stations. There is a normal S1 and S2 without rubs or gallops and capillary refill is appropriate, less than 2 seconds globally. Abdomen is soft, nontender and nondistended. Skin is warm and dry without cyanosis, clubbing or edema. Psychiatrically, the patient demonstrates appropriate mood and affect and is alert. Current Patient Data Vital Signs Vital Signs Date Time Temp Pulse Resp B/P (MAP) Pulse Ox O2 Delivery O2 Flow Rate FiO2 10/09/21 01:58 98.6 113 16 133/67 (89) 98 Room Air 98.6 Lab Values Laboratory Tests Test 10/09/21 01:29 10/09/21 01:37 10/09/21 02:26 Urine Collection Type Unknown Urine Color Yellow Urine Clarity Cloudy Urine pH 7.5 (<5.0-8.0) Urine Specific Crapo 1.015 (1.000-1.030) Urine Protein Negative mg/dL (NEG-TRACE) Urine Glucose (UA) Negative mg/dL (NEG) Urine Ketones (Stick) Negative mg/dL (NEG) Urine Blood Negative (NEG) Urine Nitrite Negative (NEG) Urine Bilirubin Negative (NEG) Urine Urobilinogen Dipstick 0.2 mg/dL (0.2 mg/dL) Urine Leukocyte Esterase Negative (NEG) Urine RBC 0 /HPF (0-2) Urine WBC Rare /HPF (0-4) Urine Squamous Epithelial Cells Few /LPF Urine Amorphous Sediment Present /HPF Urine Bacteria 0 /HPF (0-FEW) Urine Mucus Slight /LPF POC Urine HCG, Qualitative Hcg negative (Negative) White Blood Count 10.3 x10^3/uL (4.0-11.0) Red Blood Count 4.30 x10^6/uL (3.50-5.40) Hemoglobin 12.9 g/dL (12.0-15.5) Hematocrit 38.3 % (36.0-47.0) Mean Corpuscular Volume 89 fL (79-100) Mean Corpuscular Hemoglobin 30 pg (25-35) Mean Corpuscular Hemoglobin Concent 34 g/dL (31-37) Red Cell Distribution Width 13.8 % (11.5-14.5) Platelet Count 276 x10^3/uL (140-400) Neutrophils (%) (Auto) 67 % (31-73) Lymphocytes (%) (Auto) 25 % (24-48) Monocytes (%) (Auto) 5 % (0-9) Eosinophils (%) (Auto) 3 % (0-3) Basophils (%) (Auto) 1 % (0-3) Neutrophils # (Auto) 6.9 x10^3/uL (1.8-7.7) Lymphocytes # (Auto) 2.5 x10^3/uL (1.0-4.8) Monocytes # (Auto) 0.5 x10^3/uL (0.0-1.1) Eosinophils # (Auto) 0.3 x10^3/uL (0.0-0.7) Basophils # (Auto) 0.1 x10^3/uL (0.0-0.2) Sodium Level 141 mmol/L (136-145) Potassium Level 3.5 mmol/L (3.5-5.1) Chloride Level 104 mmol/L (98-107) Carbon Dioxide Level 28 mmol/L (21-32) Anion Gap 9 (6-14) Blood Urea Nitrogen 10 mg/dL (7-20) Creatinine 0.6 mg/dL (0.6-1.0) Estimated GFR (Cockcroft-Gault) 122.8 BUN/Creatinine Ratio 17 (6-20) Glucose Level 148 mg/dL (70-99) H Calcium Level 8.7 mg/dL (8.5-10.1) Total Bilirubin 0.3 mg/dL (0.2-1.0) Aspartate Amino Transferase (AST) 27 U/L (15-37) Alanine Aminotransferase (ALT) 57 U/L (14-59) Alkaline Phosphatase 117 U/L (46-116) H Total Protein 7.4 g/dL (6.4-8.2) Albumin 3.0 g/dL (3.4-5.0) L Albumin/Globulin Ratio 0.7 (1.0-1.7) L Lipase 70 U/L (73-393) L Laboratory Tests 10/09/21 02:26 Laboratory Tests 10/09/21 02:26 EKG EKG [] Radiology/Procedures Radiology/Procedures EXAM: RIGHT UPPER QUADRANT ULTRASOUND. HISTORY: Postprandial abdominal pain. COMPARISON: None. FINDINGS: Sonographic evaluation of the right upper quadrant was performed. Hyperechogenicity of the hepatic parenchyma is consistent with diffuse hepatic steatosis. There are no focal lesions. The gallbladder is contracted but otherwise unremarkable without evidence of stones, wall thickening or pericholecystic fluid. There is no sonographic Emmanuel sign. The common duct measures 6 mm. The visualized portions of the head and body of the pancreas reveal no abnormality. The right kidney measures 12.9 cm. Cortical thickness and echogenicity are preserved. There is no hydronephrosis. The visualized portions of the abdominal aorta and inferior vena cava are grossly patent and normal in caliber. IMPRESSION: 1. Diffuse hepatic steatosis. Electronically signed by: Sen Nava MD (10/09/2021 5:11 AM) [facility] DICTATED and SIGNED BY: JENNIE NAVA MD DATE: 10/09/21 [id number] XR AAS: No acute cardiopulmonary process. Nonobstructive bowel gas pattern. Course & Med Decision Making Course & Med Decision Making Labs, right upper quadrant ultrasound and abdominal plain films are without e vidence of acute process. Patient has a completely benign abdominal examination with no tenderness to palpation anywhere. No evidence of emergency condition has been identified. Unclear etiology for symptoms but will try some empiric Pepcid as well as Bentyl and Tylenol. Patient is to follow-up with primary in the next 1 to 2 days and understands that if she feels worse instead of better or develops other new symptoms of concern that she should return to the emergency department right away for reevaluation. All questions are answered. Dragon Disclaimer Dragon Disclaimer This electronic medical record was generated, in whole or in part, using a voice recognition dictation system. Departure Departure Impression: Primary Impression: Acute epigastric pain Disposition: HOME / SELF CARE / HOMELESS Condition: STABLE Patient Instructions: Abdominal Pain (Nonspecific) Additional Instructions: Follow-up very closely with your primary care doctor in the office in the next 1 to 2 days for a reevaluation of your symptoms and to discussion of next best steps in care. You may try a 500 mg extra strength Tylenol every 6 hours as needed for discomfort. You may also try a 10 mg Bentyl pill every 6 hours as needed for discomfort. Take a Pepcid pill twice a day to reduce stomach acid. Return to the emergency department right away for worsening symptoms of any kind or with any other new symptoms of concern. Scripts Famotidine (PEPCID) 20 Mg Tablet 20 MG PO BID, #60 TAB Prov: HANSEL RODGERS MD 10/09/21 Dicyclomine Hcl (DICYCLOMINE HCL) 10 Mg Capsule 1 CAP PO PRN Q6HRS for abd pain/spasm, #14 CAP 3 Refills Prov: HANSEL RODGERS MD 10/09/21 Acetaminophen (ACETAMINOPHEN) 500 Mg Tablet 1 TAB PO PRN Q6HRS PRN for pain or fever for 15 Days, #60 TAB 0 Refills Prov: HANSEL RODGERS MD 10/09/21 HANSEL RODGERS MD Oct 09, 2021 05:30
--- NOTE | 2021-10-09 06:01 | RAD ---
EXAM: 2 VIEW ABDOMEN WITH ONE VIEW CHEST. HISTORY: Abdominal pain and constipation. COMPARISON: None. FINDINGS: A frontal view of the chest and supine/upright views of the abdomen are obtained. There are no confluent infiltrates. There is no pneumothorax or pleural effusion. The heart is not en larged. There is no pneumoperitoneum. There are no distended small bowel loops or significant air-fluid level s. There is gas distally. IMPRESSION: 1. No confluent infiltrates. 2. No evidence of obstruction. Electronically signed by: Sen Nava MD (10/09/2021 5:58 AM) [facility]
== END 2021-10-09 05:36 | disposition home or self-care (01) ==
LOC: ER 00:54
DX: R10.13 Epigastric pain (principal); R11.0 Nausea; G43.909 Migraine, unspecified, not intractable, without status migrainosus
CPT/HCPCS: 36415; 74022; 76705; 80053; 81001; 81025; 83690; 85025; 96372; 99285; J0500

== ENCOUNTER 2021-10-20 18:19 | Emergency (ER) | payer MEDICAID ==
[~2021-10-20] VITALS: Ht 160 cm; Wt 90.9 kg
[~2021-10-20 18:19] MED LIST changes: +ACET500T68 PO; +DICY10CA3 PO; +FAMO-63 PO
--- NOTE | 2021-10-20 19:16 | RAD ---
XR EXAM OF ANKLE_RIGHT 3VIEWS DATE: 10/20/2021 7:00 PM INDICATION: Reason: pain twisted ankle / Spl. Instructions: / History: COMPARISON: Radiograph from 04/06/2020 FINDINGS: Bones: Acute transversely oriented fracture at the distal fibula occurring below the level of the ank le joint. Joints: The ankle mortise is congruent. No widening of the distal tibiofibular syndesmosis. Miscellaneous: Soft tissue swelling over the lateral malleolus. IMPRESSION: Nondisplaced distal fibular fracture consistent with Tee type A with associated moderate soft tissu e swelling. Electronically signed by: Milo Julian DO (10/20/2021 7:13 PM) [facility]
[2021-10-20 19:25] VITALS: BP 138/64
[2021-10-20] MEDS ORDERED: NAPROXEN 500 MG TABLET PO STA (19:45)
[2021-10-20] MEDS ORDERED: HYDR-2761 PO (19:52)
--- NOTE | 2021-10-20 19:52 | PHYS DOC ---
Past Medical History Past Medical History: Anxiety, Depression, Migraines, Other Additional Past Medical Histor: preeclampsia, FATTY LIVER ([place] [employer]LL[employer]) Past Surgical History: Other Additional Past Surgical Histo: RIGHT HAND REPAIR ([employer]) Smoking Status: Never Smoker Alcohol Use: Occasionally Drug Use: None ([place] [employer]) General Adult EDM: Chief Complaint: ANKLE PROBLEM HPI: HPI: Patient is a 26 year old female who presents the ED today complaining of 10 out of 10 right ankle pain, symptoms began today yesterday she rolled her ankle walking. Patient states the pain is worse on weightbearing. Patient states the orthopedic boot she has on is helping tremendously with the pain. She reports breaking the right ankle 1 year ago when she was ([place] [employer]) Review of Systems: Review of Systems: Constitutional: Denies fever or chills. []] Musculoskeletal: Reports right ankle pain Integument: Denies rash. [] Neurologic: Denies headache, focal weakness or sensory changes. [] Psychiatric: Denies depression or anxiety. [] ([place] [employer]) Heart Score: C/O Chest Pain: N/A Risk Factors: Risk Factors: DM, Current or recent (<one month) smoker, HTN, HLP, family history of CAD, obesity. Risk Scores: Score 0 - 3: 2.5% MACE over next 6 weeks - Discharge Home Score 4 - 6: 20.3% MACE over next 6 weeks - Admit for Clinical Observation Score 7 - 10: 72.7% MACE over next 6 weeks - Early Invasive Strategies ([place] CARRILLO Jennifer CLAY TRANSPORTER) Allergies: Allergies: Allergies Coded Allergies Type Severity Reaction Last Updated Verified No Known Drug Allergies 12/31/13 No ([place] [employer]) Physical Exam: PE: Constitutional: Well developed, well nourished, no acute distress, non-toxic appearance. [] Skin: Warm, dry, no erythema, no rash. [] Back: No tenderness, no CVA tenderness. [] Extremities: Right ankle with mild soft tissue swelling. Tenderness on palpation of the right lateral ankle. Limited range of motion to the right ankle due to pain. Full range of motion to the right toes. +2 right pedal pulse. Cap refill less than 2 seconds to right toes. Neurologic: Alert and oriented X 3, normal motor function, normal sensory function, no focal deficits noted. [] Psychologic: Affect normal, judgement normal, mood normal. [] ([place] CARRILLO APRN) Current Patient Data: Vital Signs: Vital Signs Date Time Temp Pulse Resp B/P (MAP) Pulse Ox O2 Delivery O2 Flow Rate FiO2 10/20/21 19:25 98.1 68 13 138/64 (88) 100 Room Air 98.1 ([place] CARRILLO APRN) EKG: EKG: [] ([place] CARRILLO APRN) Radiology/Procedures: Radiology/Procedures: []PROCEDURE: ANKLE RIGHT 3V XR EXAM OF ANKLE_RIGHT 3VIEWS DATE: 10/20/2021 7:00 PM INDICATION: Reason: pain twisted ankle / Spl. Instructions: / History: COMPARISON: Radiograph from 04/06/2020 FINDINGS: Bones: Acute transversely oriented fracture at the distal fibula occurring below the level of the ankle joint. Joints: The ankle mortise is congruent. No widening of the distal tibiofibular syndesmosis. Miscellaneous: Soft tissue swelling over the lateral malleolus. IMPRESSION: Nondisplaced distal fibular fracture consistent with Tee type A with associated moderate soft tissue swelling. Electronically signed by: Nieves Julian DO (10/20/2021 7:13 PM) [facility] DICTATED and SIGNED BY: NIEVES JULIAN DO DATE: 10/20/21 [id number] ([place] CARRILLO APRN) Course & Med Decision Making: Course & Med Decision Making Pertinent Labs and Imaging studies reviewed. (See chart for details) This is a 26-year-old female patient presenting to the ED today with right ankle pain that began after she rolled her ankle yesterday. Right ankle x-rays interpreted by radiologist were noted for nondisplaced distal fibular fracture consistent with Tee type A with associated moderate soft tissue swelling. Patient has an orthopedic boot on that she received last year for breaking the same bone, neurovascular exam to the right lower extremity was done by me and is normal. She was provided an orthopedic doctor for follow-up. Ice elevation encouraged. ([place] CARRILLO APRN) Dragon Disclaimer: Dragon Disclaimer: This electronic medical record was generated, in whole or in part, using a voice recognition dictation system. ([place] CARRILLO APRN) Departure Departure Impression: Primary Impression: Fibula fracture Qualified Codes: S82.831A - Other fracture of upper and lower end of right fibula, initial encounter for closed fracture Disposition: HOME / SELF CARE / HOMELESS Condition: STABLE Referrals: NO PCP (PCP) RODOLFO CRISOSTOMO MD Call him tomorrow morning and set up a follow-up appointment Patient Instructions: Fibular Fracture, Ankle, Adult, Treated with or without Immobilization Additional Instructions: You have right fibula fracture. Wear the orthopedic shoe you have on daily until you see the orthopedic doctor. Try to ice and elevate the extremity. We sent pain medicine to your local pharmacy. Take it as needed for pain. Please call the orthopedic doctor provided in the morning and set up a follow-up appointment Scripts Hydrocodone Bit/Acetaminophen (HYDROCODONE-APAP 5-325 ) 1 Tab Tablet 1 TAB PO PRN Q6HRS PRN for PAIN, #14 TAB 0 Refills Prov: [place] CARRILLO APRN 10/20/21 Attending Signature Attending Signature I have reviewed the PA/[employer]'s note and plan of care. I was available for consultation as needed during the patient's visit in the emergency department. I agree with the clinical impression, plan, and disposition. (JOSH GARCIA DO) [place] CARRILLO APRN Oct 20, 2021 19:52 JOSH GARCIA DO Oct 21, 2021 00:29
[2021-10-20] MEDS ORDERED: HYDROcodone/APAP 5/325MG 1 TAB TABLET PO ONE (20:00)
== END 2021-10-20 20:38 | disposition home or self-care (01) ==
LOC: ER 18:19
DX: S82.831A Other fracture of upper and lower end of right fibula, initial encounter for closed fracture (principal); G43.909 Migraine, unspecified, not intractable, without status migrainosus; X50.9XXA Other and unspecified overexertion or strenuous movements or postures, initial encounter; Y93.89 Activity, other specified; Y92.89 Other specified places as the place of occurrence of the external cause; Y99.8 Other external cause status
CPT/HCPCS: 73610; 99283